=== PATIENT | male | born 1950 | race Caucasian/White ===

== ENCOUNTER 2023-02-04 13:30 | Outpatient (OUT) | payer MEDICARE, SELFPAY ==
--- NOTE | 2023-02-04 15:02 | PM.CN ---
Consult Note: HPI Data of Consult Patient: new to practice Consult date: 02/04/23 Requesting Physician: Elena Hightower MD Primary Care Provider: HUONG ARTHUR Consult Narrative Reason for consult: low back pain Narrative: this is a pleasant 72-year-old gentleman who presents for evaluation. He notes significant axial low back pain that is worsened with standing and ambulation. His lumbar imaging was reviewed, which is significant for multilevel facet arthropathy, worse at L3-L4 and L4-L5. Provided written home exercises, which did not provide relief of this pain. He takes primarily lflh-ygx-eixmxcy pain medicines, which did not provide much relief. He otherwise denies adverse medication side effects or loss of bowel or bladder control. cc:: CC: Elena Hightower MD Review of Systems ROS Status of ROS 10 or more systems reviewed and unremarkable except as noted in history and below Meds Home Medications and Allergies Home Medications Medication Instructions Recorded Confirmed Type amlodipine 10 mg tablet 10 mg PO DAILY 02/04/23 02/04/23 History lisinopril 40 mg tablet 40 mg PO DAILY 02/04/23 02/04/23 History trazodone 100 mg tablet 100 mg PO DAILY 02/04/23 02/04/23 History Allergies Allergy/AdvReac Type Severity Reaction Status Date / Time No Known Drug Allergies Allergy Verified 02/04/23 14:32 Exam Back & Pelvis Other: tender to palpation throughout the lumbar spine and paraspinal musculature. Pain is elicited with flexion, extension, and lateral rotation of the lumbar spine. Facet loading maneuvers are positive bilaterally. Coordination remains intact. Gait remains nonantalgic. Assessment and Plan Assessment and Plan (1) Lumbar spondylosis: Plan this is a pleasant 72-year-old gentleman who presents for evaluation. He has failed physical and medical modalities, as listed above. Imaging was reviewed, as noted above. Given his symptomatology and imaging findings, it is prudent to attempt diagnostic bilateral L3, L4, L5 medial branch blocks ?2 with the intention of proceeding to radio frequency ablation. He is in agreement with this plan. Medications were reviewed, and no changes were made at this time. He will follow up after the procedures completed.
== END 2023-02-04 13:31 | disposition home or self-care (01) ==
LOC: PM 13:31
PROVIDERS: PCP Internal Medicine; Visit Provider Anesthesiology
DX: M47.816 Spondylosis without myelopathy or radiculopathy, lumbar region (principal)
CPT/HCPCS: G0463

== ENCOUNTER 2023-02-25 06:46 | Day surgery (SDC) | payer MEDICARE, SELFPAY ==
[2023-02-25 07:22] VITALS: BP 151/99; PULSE 96; RESP 16; TEMP 36.6; O2SAT 96
[2023-02-25 08:19] VITALS: PULSE 74; RESP 18; O2SAT 97
[2023-02-25] MEDS: BUPIVACAINE HCL 0.25% PF 25 MG/10 ML VIAL INJ (08:19)
[2023-02-25] MEDS: TRIAMCINOLONE ACETONIDE 40 MG/ML VIAL INJ (08:20)
[2023-02-25] MEDS: LIDOCAINE HCL 2% PF 100 MG/5 ML VIAL INJ (08:20)
--- NOTE | 2023-02-25 08:20 | W.PM.PROCNOT ---
Date of procedure: 02/25/23 Pre-op diagnosis: lumbosacral spondylosis Post-op diagnosis: same Procedure: Procedure: Bilateral L4-5, L5-S1 medial branch block Medications: Bupivacaine 0.25% 5cc The patient was seen and examined in the preoperative holding area.? An informed consent was obtained and placed on the chart.? The patient was brought to the medical procedure unit and placed in the prone position.? A timeout was completed verifying correct patient, procedure site, positioning, plan, and special equipment.? Using aseptic technique, the needle was placed at left L4. Under direct fluoroscopic visualization a Quincke-tipped spinal needle was advanced to the junction of the superior articulating process with the transverse process at the designated medial branch segment.? Preceded by negative aspiration, the above-mentioned injectate was placed in 1 mL aliquots.? The procedure was repeated at left L5, S1.? The needle was removed and insertion site was covered. The same procedure, at the same levels, was completed on the right side. The patient was taken to the postprocedural recovery area and monitored for an appropriate length of time before found suitable for discharge in the company of a responsible adult. Anesthesia: None Surgeon: Elena Hightower Pathology: none sent Condition: stable
[2023-02-25 14:04] VITALS: BP 172/99; PULSE 63; RESP 18; O2SAT 99
== END 2023-02-25 08:25 | disposition home or self-care (01) ==
PROVIDERS: PCP Internal Medicine; Visit Provider Anesthesiology
DX: M47.817 Spondylosis without myelopathy or radiculopathy, lumbosacral region (principal)
CPT/HCPCS: 64493; 64494

== ENCOUNTER 2023-03-22 08:25 | Outpatient (OUT) | payer MEDICARE, SELFPAY ==
--- NOTE | 2023-03-22 08:42 | PM.CN ---
Consult Note: HPI Data of Consult Patient: known to practice within the last 3 years Consult date: 03/22/23 Requesting Physician: DANIELE MOTT NP Primary Care Provider: HUONG ARTHUR Consult Narrative Narrative: Patient is here for f/u of chronic . He had first MBB lumbar L3, 4, 5 done 02/25/23. He had 80% relief for several hours after procedure. He would like to proceed with second MBB. He states he feels like his pain is lower and would like to move down 1 level for second MBB. Pain today is lower lumbar axial with no radiculopathy, worse with ROM and walking . No new sensorimotor sx or bowel or bladder issues. Medication regimen assists patient to better complete ADLs. Denies adverse medication SE. OARRS reviewed. cc:: CC: DANIELE MOTT NP Review of Systems ROS Status of ROS 10 or more systems reviewed and unremarkable except as noted in history and below Musculoskeletal Reports: back pain PFSH PFSH Medical History Surgical History Meds Home Medications and Allergies Home Medications Medication Instructions Recorded Confirmed Type amlodipine 10 mg tablet 10 mg PO DAILY 02/04/23 02/25/23 History lisinopril 40 mg tablet 40 mg PO DAILY 02/04/23 02/25/23 History trazodone 100 mg tablet 100 mg PO DAILY 02/04/23 02/25/23 History Allergies Allergy/AdvReac Type Severity Reaction Status Date / Time No Known Drug Allergies Allergy Verified 02/04/23 14:32 Exam Constitutional Documenting provider has reviewed patient's vital signs: yes Common normals: no apparent distress, average body habitus, oriented x3, no limitations, healthy appearing, alert and well nourished General appearance: cooperative, comfortable and well developed Orientation/consciousness: Yes awake, Yes oriented to person, Yes oriented to place and Yes oriented to time HENMT Common normals: normocephalic and moist oral mucous membranes Respiratory Common normals: normal respiratory effort, no retractions and no use of accessory muscles Effort & inspection: able to speak in complete sentences and symmetric chest movement Back & Pelvis Lumbar spine/lower back: normal to inspection, ROM limited, pain with ROM, paraspinal muscle tenderness and paraspinal muscle spasm Other: positive facet load pain bilat lumbar Muscle strength 5/5 bilat LE with intact sensation Extremity Common normals: normal to inspection, full ROM, normal capillary refill and no pedal edema Assessment and Plan Assessment and Plan (1) Lumbar spondylosis: Plan schedule second dx MBB lumbar bilat L4, 5,S1 under fluoroscopy with ultimate progression to thermal RFA in future
== END 2023-03-22 08:26 | disposition home or self-care (01) ==
LOC: PM 08:25
PROVIDERS: PCP Internal Medicine; Visit Provider Nurse Practitioner
DX: M47.816 Spondylosis without myelopathy or radiculopathy, lumbar region (principal)
CPT/HCPCS: G0463

== ENCOUNTER 2023-04-22 09:40 | Day surgery (SDC) | payer MEDICARE, SELFPAY ==
[2023-04-22 10:39] VITALS: BP 163/103; PULSE 64; RESP 16; TEMP 36.2; O2SAT 97
[2023-04-22] MEDS: BUPIVACAINE HCL 0.25% PF 25 MG/10 ML VIAL INJ (11:26)
[2023-04-22] MEDS: TRIAMCINOLONE ACETONIDE 40 MG/ML VIAL INJ (11:26)
[2023-04-22] MEDS: LIDOCAINE HCL 2% PF 100 MG/5 ML VIAL INJ (11:26)
--- NOTE | 2023-04-22 11:30 | W.PM.PROCNOT ---
Date of procedure: 04/22/23 Pre-op diagnosis: lumbar spondylosis Post-op diagnosis: same as pre-op Procedure: Procedure: Bilateral L4-5, L5-S1 medial branch block Medications: Bupivacaine 0.25% 4cc The patient was seen and examined in the preoperative holding area.? An informed consent was obtained and placed on the chart.? The patient was brought to the medical procedure unit and placed in the prone position.? A timeout was completed verifying correct patient, procedure site, positioning, plan, and special equipment.? Using aseptic technique, the needle was placed at left L4. Under direct fluoroscopic visualization a Quincke-tipped spinal needle was advanced to the junction of the superior articulating process with the transverse process at the designated medial branch segment.? Preceded by negative aspiration, the above-mentioned injectate was placed in 1 mL aliquots.? The procedure was repeated at left L5, S1.? The needle was removed and insertion site was covered. The same procedure, at the same levels, was completed on the right side. The patient was taken to the postprocedural recovery area and monitored for an appropriate length of time before found suitable for discharge in the company of a responsible adult. Anesthesia: Local Surgeon: Elena Hightower Pathology: none sent Condition: stable Disposition: no change
[2023-04-23 11:17] VITALS: BP 159/95; BP 165/106; PULSE 62; RESP 18; O2SAT 96; O2SAT 98
== END 2023-04-22 11:34 | disposition home or self-care (01) ==
PROVIDERS: PCP Internal Medicine; Visit Provider Anesthesiology
DX: M47.816 Spondylosis without myelopathy or radiculopathy, lumbar region (principal)
CPT/HCPCS: 64493; 64494

== ENCOUNTER 2023-05-01 08:19 | Outpatient (OUT) | payer MEDICARE, SELFPAY ==
--- NOTE | 2023-05-01 08:31 | P.CN_ITS ---
Consult Note: HPI Data of Consult Patient: known to practice within the last 3 years Requesting Physician: Millie العراقي NP Primary Care Provider: HUONG ARTHUR Consult Narrative Reason for consult: f/u Narrative: Robert Grigsby a pleasant 73 year old male presents for evaluation and management of chronic low back pain. Patient has now underwent two MBB at bilateral L4-5 L5-S1 providing >80% pain relief and functional improvement. Today his pain is 3/10 and he is still benefitting from most recent procedure. Patient would like to discuss proceeding with thermal RFA at bilateral L4-5 L5-S1. cc:: CC: Millie العراقي NP Review of Systems ROS Status of ROS 10 or more systems reviewed and unremarkable except as noted in history and below Musculoskeletal Reports: back pain PFSH PFSH Medical History Surgical History Meds Home Medications and Allergies Home Medications Medication Instructions Recorded Confirmed Type amlodipine 10 mg tablet 10 mg PO DAILY 02/04/23 04/22/23 History lisinopril 40 mg tablet 40 mg PO DAILY 02/04/23 04/22/23 History trazodone 100 mg tablet 100 mg PO DAILY 02/04/23 04/22/23 History Allergies Allergy/AdvReac Type Severity Reaction Status Date / Time No Known Drug Allergies Allergy Verified 04/22/23 10:35 Exam Constitutional Documenting provider has reviewed patient's vital signs: yes Common normals: no apparent distress, oriented x3, healthy appearing, alert and well nourished General appearance: cooperative HENMT Common normals: normocephalic, hearing grossly normal bilaterally and moist oral mucous membranes Head and scalp: normocephalic Eye Common normals: PERRL Pupil: PERRL Neck & C-Spine Common normals: full ROM General: normal visual inspection Chest Common normals: inspection of chest normal Respiratory Common normals: normal respiratory effort, no retractions and no use of accessory muscles Back & Pelvis Lumbar spine/lower back: ROM limited and pain with ROM Other: bilateral facet loading positive predominately axial low back pain no radiculopathy Extremity Common normals: normal to inspection and full ROM Neuro Common normals: oriented x3, CN's II-XII intact bilaterally, moves all extremities, no focal motor deficits, no sensory deficits noted, deep tendon reflexes 2+ bilaterally and gait normal Sensorium/orientation: alert Motor exam: strength 5/5 throughout and no movement abnormalities noted Psych Common normals: mental status grossly normal, thought process normal, cooperative, affect normal, speech normal and activity/motor behavior normal Speech: normal speech Thought process: normal thought process Results Additional Findings Additional findings: I have checked an OARRS report on this patient today and there are no aberrancies noted in the prescribing history.?? A drug screen was completed and reviewed within the last year, and if there has not been a drug screen completed we ordered one today to monitor higher risk, state monitored pain medication use. As part of providing excellent, safe, comprehensive care, the following was completed at our patient's visit: 1. A medication reconciliation and review to ensure accurate knowledge of curren t/active medications, including asking our patients to inform us about any cqpq-uum-ssxmctw medications or herbal remedies/nutritional supplements/alternative remedies. 2. A review to specifically ensure our patients have had annual screening for: elevated body mass index (BMI), tobacco use, screening for depression, and screening for unhealthy alcohol use. When screening is concerning, patients are provided with education and the specific recommendation to discuss the concerning health issue and treatment options with their primary care provider. Assessment and Plan Assessment and Plan (1) Lumbar spondylosis: Assessment and Plan: We discussed the risks and benefits of the procedure with the patient, and we are NOT planning on using sedation as outlined in the guidelines from Medicare unless there is a documented reason that sedation would be strongly recommended.?? The procedure will be completed with fluoroscopic guidance.? (2) Chronic prescription opiate use: Assessment and Plan: has not had to utilize tramadol as pain has been well controlled since last MBB Plan patient has had >80% pain relief and functional improvement after bilateral L4-5 L5-S1 MBB #1 and #2, proceed with thermal RFA under fluoroscopy continue HEP follow up 1 month after
== END 2023-05-01 08:20 ==
LOC: PM 08:20
PROVIDERS: PCP Internal Medicine; Visit Provider Nurse Practitioner
DX: M47.816 Spondylosis without myelopathy or radiculopathy, lumbar region (principal); Z79.891 Long term (current) use of opiate analgesic
CPT/HCPCS: G0463

== ENCOUNTER 2023-05-20 08:18 | Day surgery (SDC) | payer MEDICARE, SELFPAY ==
[2023-05-20 08:41] VITALS: BP 159/99; PULSE 68; RESP 14; TEMP 36.3; O2SAT 95
[2023-05-20] MEDS: TRIAMCINOLONE ACETONIDE 40 MG/ML VIAL INJ (09:24)
[2023-05-20] MEDS: BUPIVACAINE HCL 0.25% PF 25 MG/10 ML VIAL INJ (09:24)
[2023-05-20] MEDS: LIDOCAINE HCL 2% 400 MG/20 ML MDV 15 ML INJ (09:24)
[2023-05-20 09:30] VITALS: BP 123/83; PULSE 76; RESP 18; O2SAT 97
[2023-05-20 09:34] VITALS: BP 125/81; PULSE 74; RESP 18; O2SAT 92
--- NOTE | 2023-05-20 09:37 | P.ON_ITS ---
Date of procedure: 05/20/23 Pre-op diagnosis: Lumbar spondylosis Post-op diagnosis: same as pre-op Procedure: Procedure: Bilateral L4-5, L5-S1 radiofrequency ablation Medications: Bupivacaine 0.25% 6cc, kenalog 80mg, lidocaine 2% 5cc The patient was seen and examined in the preoperative holding area.? The site was marked.? Written informed consent was obtained and placed on the chart.? The patient was brought to the medical procedure unit and placed in the prone position.? A timeout was completed verifying correct patient, procedure, positioning, and special requirements.? The skin overlying the target points, the designated medial branch, were prepped and draped in the usual sterile fashion.? The target point was achieved with a 20-gauge 15 cm with a 10 mm curved active tip radiofrequency cannula under direct fluoroscopic visualization.? The needle was inserted at level L4 on the right side. Needle tip position was confirmed with lateral fluoroscopic position.? Motor stimulation was carried out at 2 Hz up to 5 volts with the absence of extremity activity.? This was repeated at level L5, S1 on right side.?? Sensory stimulation was carried out.? Concordant pain was realized at the above- mentioned sites.? Then radiofrequency lesioning was carried out times 90 seconds at 80 degrees times 2 lesions at each level.? The radiofrequency probe was removed prior to cannula removal.? The above-mentioned injectate was placed in 1 mL increments.? The needle was removed. The same procedure, with the same steps, was then completed on the left side at the same levels. Insertion sites were covered.? The patient was taken to the postoperative recovery area and monitored for an appropriate length of time before being found suitable for discharge in the company of a responsible adult. Anesthesia: Local Surgeon: Elena Hightower Pathology: none sent Condition: stable Disposition: no change
== END 2023-05-20 09:42 | disposition home or self-care (01) ==
PROVIDERS: PCP Internal Medicine; Visit Provider Anesthesiology
DX: M47.816 Spondylosis without myelopathy or radiculopathy, lumbar region (principal)
CPT/HCPCS: 64635; 64636

== ENCOUNTER 2023-06-19 08:01 | Outpatient (OUT) | payer MEDICARE, SELFPAY ==
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
== END 2023-06-19 08:02 | disposition home or self-care (01) ==
PROVIDERS: PCP Internal Medicine; Visit Provider Nurse Practitioner
DX: M25.552 Pain in left hip (principal); M25.551 Pain in right hip; M47.26 Other spondylosis with radiculopathy, lumbar region; Z79.891 Long term (current) use of opiate analgesic
CPT/HCPCS: 73522; G0463

== ENCOUNTER 2023-06-19 08:50 | Outpatient (OUT) | payer MEDICARE, SELFPAY ==
--- NOTE | 2023-06-19 09:11 | XR_ITS ---
The [address] [address] Patient Name: INES MAK MRN: [id number] date: 1950 Sex: M Assigned Patient Location: [facility] Current Patient Location: [facility] Accession/Order Number: [id number] Exam Date: 06/19/2023 09:00 Report Date: 06/19/2023 12:14 At the request of: ANDRIUS GIEDRAITIS Procedure: XR hip KARRIE EXAMINATION: XR hip KARRIE HISTORY: Bilateral Hip Pain COMPARISON: No relevant comparison available. FINDINGS: RIGHT FINDINGS: BONES: No significant joint space narrowing, articular surface irregularity, or significant periarticular degenerative osteophytes. SOFT TISSUES: 6 mm round dense calcification versus foreign body projecting over upper right thigh and midline scrotum. OTHER: Negative. LEFT FINDINGS: BONES: No significant joint space narrowing, articular surface irregularity, or periarticular degenerative osteophytes. SOFT TISSUES: No visible soft tissue swelling. OTHER: Negative. XR/XR hip KARRIE IMPRESSION: RIGHT CONCLUSION: Minimal degenerative changes. No acute abnormality. LEFT CONCLUSION: Minimal degenerative changes. No acute abnormality. Electronically authenticated by: DOUGLAS BRAR Date: 06/19/2023 12:14
== END 2023-06-19 08:51 | disposition home or self-care (01) ==
LOC: RAD 08:52
PROVIDERS: PCP Internal Medicine; Visit Provider Anesthesiology
DX: M25.552 Pain in left hip (principal); M25.551 Pain in right hip
CPT/HCPCS: 73522

== ENCOUNTER 2023-07-15 07:32 | Day surgery (SDC) | payer MEDICARE, SELFPAY ==
[2023-07-15 08:22] VITALS: BP 180/105; PULSE 76; RESP 14; TEMP 36.5; O2SAT 96
[2023-07-15 09:20] VITALS: BP 221/126; PULSE 73; RESP 18; O2SAT 93
[2023-07-15] MEDS: 0.9 % SODIUM CHLORIDE 10 ML INJ (09:21)
[2023-07-15] MEDS: DEXAMETHASONE SOD PHOS 10 MG/ML VIAL INJ (09:22)
[2023-07-15] MEDS: BUPIVACAINE HCL 0.25% PF 25 MG/10 ML VIAL INJ (09:22)
--- NOTE | 2023-07-15 09:22 | W.PM.PROCNOT ---
Date of procedure: 07/15/23 Pre-op diagnosis: Lumbar stenosis with neurogenic claudication Post-op diagnosis: same as pre-op Procedure: Procedure: Bilateral L3-4 transforaminal epidural steroid injection Medications: Bupivacaine 0.25% 2cc, lidocaine 2% 1cc, dexamethasone 10mg The patient was seen and examined in the preoperative holding area.? Informed consent was obtained and placed on the chart.? Patient was brought to the medical procedure unit and placed in the prone position where a timeout was completed verifying the correct patient, procedure site, position, and planned special equipment using sterile aseptic technique.? Under direct fluoroscopic visualization a 25-gauge Quincke tipped spinal needle was advanced at level left L3-4 to the designated neural foramen where contrast dye was injected to show adequate spread.? There was no evidence of vascular or adverse uptake.? Epidural spread was appreciated.? The above-mentioned injectate was then placed in a 1.5 mL aliquot preceded by negative aspiration.? The needle was removed. The same procedure, at the same level, was completed on the opposite side. ? Patient was taken to the postprocedural recovery area and monitored for an appropriate length of time before found suitable for discharge in the accompaniment of a responsible adult. Anesthesia: Local Surgeon: Elena Hightower Pathology: none sent Condition: stable Disposition: no change
[2023-07-15 09:23] VITALS: BP 230/112; PULSE 68; RESP 18; O2SAT 92
[2023-07-15] MEDS: LIDOCAINE HCL 2% PF 100 MG/5 ML VIAL 2 ML INJ (09:24)
[2023-07-15] MEDS: IOHEXOL 240 MG/ML - 10 ML VIAL 12 MG INJ (09:24)
== END 2023-07-15 09:26 | disposition home or self-care (01) ==
PROVIDERS: PCP Internal Medicine; Visit Provider Anesthesiology
DX: M48.062 Spinal stenosis, lumbar region with neurogenic claudication (principal)
CPT/HCPCS: 64483; J1100; Q9966

== ENCOUNTER 2023-08-19 06:38 | Day surgery (SDC) | payer MEDICARE, SELFPAY ==
--- OUTSIDE RECORDS SUMMARY | 2023-08-19 06:40 | XMS_ITS | CCD ---
Author Name Unknown Address [address] [employer] [address] [place] [address] Organization [facility] Care Team Providers Care Will Call Order Clerk Name Role Phone Huong Arthur Primary Care Provider UnavailRichard Reilly Attending Provider Unavailable Villa Singleton Attending Provider Unavailable HUONG ARTHUR Primary Care Physician Unavail able DO Huong Arthur Primary Care Provider [phone] MD Jourdan Hammer Attending Provider DO Huong Arthur Primary Care Provider [phone] MD Jourdan Hammer Attending Provider TIMI Singleton Attending Provider Jourdan Hammer Admitting UnavailJourdan Watkins Attending UnavailHuong Guaman Primary Care Unavailable Villa Singleton Admitting Unavailable Villa Singleton Attending Unavailable Huong Arthur Primary Care Unavailable Mike AGUILAR Attending Unavailable Mike AGUILAR Attending Unavailable Mike AGUILAR Attending Unavailable Miek AGUILAR Attending Unavailable Mike AGUILAR Attending Unavailable HUONG ARTHUR Attending Unavailable HUONG ARTHUR Referring Unavailable Katja WHITT, Elena Schwartz Attending Unavailable Katja WHITT, Andrius Schwartz Attending Unavailable Katja WHITT, Andrius Efren Attending Unavailable Ktaja WHITT, Andrius Efren Attending Unavailable Katja WHITT, Andrius Schwartz Attending Unavailable Katja WHITT, Andrius Schwartz Attending Unavailable Unavailable Unavailable Unavailable Medications Current Medications Medication Drug Class(es) Dates Sig (Normalized) Sig (Original) amLODIPine 5 mg oral tablet (6 sources) Dihydropyridine Calcium Channel Ember Start: 12-22-2021 take 1 tablet by mouth once daily amLODIPine 5 mg Tab 5 mg = 1 tab(s), Oral, Daily, # 30 tab(s), Refills(s) 0, Pharmacy: [facility]/pharmacy #[id number], 177, cm, 12/07/21 12:34:00 EDT, Height/Length Dosing, 91.5, kg, 12/21/21 6:01:00 EDT, Weight Dosing Start Date: 12/22/21 Status: Ordered aspirin 81 mg oral tablet (5 sources) Platelet Aggregation Inhibitor, Nonsteroidal Anti-inflammatory Drug Start: 12-08-2020 take 81 mg by mouth once daily aspirin 81 mg, Oral, Daily, Prophylaxis Start Date: 12/08/20 Status: Ordered Start: 01-21-2019 take 81 mg by mouth once daily Aspirin Active 81 MG PO Daily January 21, 2019 12:00am cephalexin 500 mg oral capsule (1 source) Cephalosporin Antibacterial Start: 12-21-2021 End: 12-26-2021 take 1 capsule by mouth every twelve hours cephalexin 500 mg Cap 500 mg = 1 cap(s), Oral, q12hr, X 5 day(s), # 10 cap(s), Refills(s) 0, Pharmacy: [facility]/pharmacy #[id number], 177, cm, 12/07/21 12:34:00 EDT, Height/Length Dosing, 91.5, kg, 12/21/21 6:01:00 EDT, Weight Dosing Start Date: 12/21/21 Stop Date: 12/26/21 Status: Ordered DULoxetine 20 mg oral tablet (8 sources) Serotonin and Norepinephrine Reuptake Inhibitor Start: 08-30-2020 take 20 mg by mouth once daily duloxetine 20 mg, Oral, Daily, Refills(s) 0, Anxiety Start Date: 08/30/20 Status: Ordered Start: 01-21-2019 take 20 mg by mouth once daily Duloxetine Active 20 MG PO Daily January 21, 2019 12:00am fenofibrate 145 mg oral tablet (3 sources) Peroxisome Proliferator Receptor alpha Agonist Start: 01-21-2019 take 145 mg by mouth once daily Fenofibrate Nanocrystallized Active 145 MG PO Daily January 21, 2019 12:00am finasteride 5 mg oral tablet (11 sources) 5-alpha Reductase Inhibitor Start: 01-21-2019 take 5 mg by mouth once daily finasteride 5 mg, Oral, Daily, Refills(s) 0, Other (see comment) Start Date: 08/30/20 Status: Ordered gabapentin 800 mg oral tablet (8 sources) Anti-epileptic Agent Start: 12-07-2021 take 1 tablet by mouth twice daily gabapentin 800 mg Tab 800 mg = 1 tab(s), Oral, BID, Refills(s) 0, Pain Start Date: 12/07/21 Status: Ordered hyoscyamine sulfate 0.12 mg / methenamine 118 mg / methylene blue 10 mg / phenyl salicylate 36 mg / sodium phosphate, monobasic 40.8 mg oral capsule (2 sources) Oxidation-Reductio n Agent Start: 01-17-2022 take 1 capsule by mouth twice daily Uribel oral capsule 1 cap(s), Oral, BID, 40 cap(s), Refill(s) 3, [id number], 177, cm, 01/01/22 10:55:00 EDT, Height/Length Dosing, 84.2, kg, 01/01/22 10:55:00 EDT, Weight Dosing Start Date: 01/17/22 Status: Ordered lisinopril 40 mg oral tablet (14 sources) Angiotensin Converting Enzyme Inhibitor Start: 12-22-2021 End: 12-22-2021 lisinopril 20 mg Tab 40 mg = 2 tab(s), Tab, Oral, Start date 12/22/21 9:00:00 EDT, 12/20/21 11:35:00 EDT Start Date: 12/22/21 Stop Date: 12/22/21 Status: Completed Start: 11-04-2020 take 1 tablet by alicia th once daily in the morning lisinopril 40 mg Tab 40 mg = 1 tab(s), Oral, Daily, TAKE 1 TABLET BY MOUTH IN THE MORNING FOR 90 DAYS, High blood pressure Start Date: 11/04/20 Status: Ordered Start: 01-21-2019 End: 09-04-2022 take 5 mg by mouth once daily Lisinopril Discontinued 5 MG PO Daily January 21, 2019 12:00am September 04, 2022 8:26am meclizine hydrochloride 25 mg oral tablet (8 sources) Antiemetic Start: 08-30-2020 take 25 mg by mouth three times daily as needed for dizziness meclizine 25 mg, Oral, TID, PRN as needed for dizziness, Refills(s) 0 Start Date: 08/30/20 Status: Ordered mesalamine 1200 mg delayed release oral tablet (5 sources) Aminosalicylate Start: 09-04-2022 take 2 tablets by mouth once daily Mesalamine (Lialda) 1.2 gram tablet,delayed release (DR/EC) Active 2.4 GM PO Daily 112 September 04, 2022 1:00am Start: 02-16-2019 take 1.5 g by mouth once daily in the morning Mesalamine Active 1.5 GM Oral Every morning 120 February 16, 2019 10:35am Start: 02-16-2019 take 1 capsule by mo [facility] once daily in the morning Mesalamine (Apriso) 0.375 gram capsule,extended release 24hr Active 1.5 GM PO Every morning 120 February 16, 2019 12:00am Start: 02-16-2019 take 1 capsule by mo [facility] once daily in the morning Mesalamine (Apriso) 0.375 gram capsule,extended release 24hr Active 1.5 GM PO Every morning 120 February 15, 2019 11:00pm [place]-3 Fatty Acids (2 sources) Start: 01-21-2019 take 2000 mg by mout h once daily in the morning [place]-3 Fatty Acids Active 2000 MG Oral Every morning January 21, 2019 1:21pm Start: 01-21-2019 take 1500 mg by mouth at bedti az [place]-3 Fatty Acids Active 1500 MG Oral Bedtime January 21, 2019 1:21pm pregabalin 100 mg oral capsule (3 sources) Start: 01-21-2019 take 200 mg by mouth once daily Pregabalin Active 200 MG Oral Daily January 21, 2019 1:21pm Start: 01-21-2019 take 200 mg by mouth once annette y Pregabalin Active 200 MG PO Daily January 21, 2019 12:00am rosuvastatin 40 mg oral capsule (11 sources) HMG-CoA Reductase Inhibitor Start: 08-30-2020 take 40 mg by mouth once daily at bedtime rosuvastatin 40 mg, Oral, Once a day (at bedtime), Refills(s) 0, High cholesterol Start Date: 08/30/20 Status: Ordered Start: 01-21-2019 take 20 mg by mouth once daily Rosuvastatin Active 20 MG PO Daily January 21, 2019 12:00am solifenacin succinate 10 mg oral tablet (1 source) Cholinergic Muscarinic Antagonist Start: 06-12-2023 take 1 tablet by mouth once daily Vesicare 10 mg Tab 10 mg = 1 tab(s), Oral, Daily, # 30 tab(s), Refills(s) 11, Pharmacy: [facility]/pharmacy #[id number], 177, cm, 06/12/23 11:07:00 EDT, Height/Length Dosing, 84.2, kg, 06/12/23 11:07:00 EDT, Weight Dosing Start Date: 06/12/23 Status: Ordered tamsulosin (3 sources) alpha-Adrenergic Ember Start: 01-21-2019 take 0.8 mg by mouth once daily Tamsulosin Active 0.8 MG Oral Daily January 21, 2019 1:21pm Start: 01-21-2019 End: 09-04-2022 take 2 capsules by mouth once daily Tamsulosin (Flomax) 0.4 mg Capsule Discontinued 0.8 MG PO Daily January 21, 2019 12:00am September 04, 2022 8:27am temazepam 15 mg oral capsule (8 sources) Benzodiazepine Start: 12-07-2021 take 1 capsule by mouth once daily at bedtime temazepam 15 mg Cap 15 mg = 1 cap(s), Oral, Once a day (at bedtime), Refills(s) 0, Insomnia Start Date: 12/07/21 Status: Ordered traZODone hydrochloride 50 mg oral tablet (2 sources) Serotonin Reuptake Inhibitor Start: 09-04-2022 take 50-100 mg by mouth once daily at bedtime Trazodone Active 50 - 100 MG PO Daily at bedtime September 04, 2022 1:00am trospium chloride 20 mg oral tablet (9 sources) Cholinergic Muscarinic Antagonist Start: 09-28-2021 End: 09-23-2022 take 1 tablet by mouth twice daily trospium 20 mg oral tablet 20 mg = 1 tab(s), Oral, BID, X 30 day(s), # 60 tab(s), Refills(s) 11, Pharmacy: [facility]/pharmacy #[id number], 177, cm, 09/28/21 10:05:00 EST, Height/Length Dosing, 89, kg, 09/28/21 10:05:00 EST, Weight Dosing Start Date: 09/28/21 Stop Date: 09/23/22 Status: Ordered Start: 01-21-2019 take 40 mg by mouth once daily Trospium Active 40 MG PO Daily January 21, 2019 12:00am Completed/Discontinued Medications Medication Drug Class(es) Dates Sig (Normalized) Sig (Original) amoxicillin 875 mg / clavulanate 125 mg oral tablet (2 sources) Penicillin-class Antibacterial Start: 01-21-2019 End: 02-16-2019 take 1 tablet by mouth three times daily Amoxicillin-Pot Clavulanate Discontinued 1 TAB PO Three times daily January 21, 2019 12:00am February 16, 2019 8:01am [place]-3 Fatty Acids (Fish Oil Concentrate) 1,000 mg Capsule (4 sources) Start: 01-21-2019 End: 09-04-2022 [place]-3 Fatty Acids (Fish Oil Concentrate) 1,000 mg Capsule Discontinued 2000 MG PO Every morning January 21, 2019 12:00am September 04, 2022 8:26am Start: 01-21-2019 End: 09-04-2022 [place]-3 Fatty Acids (Fish Oi l Concentrate) 1,000 mg Capsule Discontinued 1500 MG PO Bedtime January 21, 2019 12:00am September 04, 2022 8:26am Start: 01-21-2019 End: 09-04-2022 [place]-3 Fatty Acids (Fish Oi l Concentrate) 1,000 mg Capsule Discontinued 2000 MG PO Every morning January 20, 2019 11:00pm September 04, 2022 7:26am Start: 01-21-2019 End: 09-04-2022 [place]-3 Fatty Acids (Fish Oi l Concentrate) 1,000 mg Capsule Discontinued 1500 MG PO Bedtime January 20, 2019 11:00pm September 04, 2022 7:26am predniSONE 10 mg oral tablet (2 sources) Start: 01-21-2019 End: 03-11-2019 take 10 mg by mouth once daily Prednisone Discontinued 10 MG PO Daily January 21, 2019 12:00am March 11, 2019 7:40am tapering dose Problems Active Problems Problem Classification Problem Date Documented Date Episodic/Chronic Abdominal pain (6 sources) Left lower quadrant pain; Translations: [Abdominal pain] 02-16-2019 Episodic Cancer of kidney and renal pelvis (8 sources) Malignant tumor of kidney 07-03-2015 Chronic Chronic obstructive pulmonary disease and bronchiectasis (1 source) Bronchitis; Translations: [Bronchitis, not specified as acute or chronic] Onset: 12-21-2021 Episodic Disorders of lipid metabolism (9 sources) Hypercholesterolemia; Translations: [Pure hypercholesterolemia] Onset: 12-21-2021 01-28-2014 Chronic Essential hypertension (8 sources) Hypertensive disorder 01-28-2014 Chronic Fluid and electrolyte disorders (1 source) Hypo-osmolality and or hyponatremia; Translations: [Hypo-osmolality and hyponatremia] Onset: 12-22-2021 Episodic Genitourinary symptoms and ill-defined conditions (15 sources) Urge incontinence; Translations: [Stress incontinence (female) (male)] Onset: 01-01-2022 Chronic Genitourinary symptoms and ill-defined conditions (20 sources) Candido hematuria; Translations: [Retention of urine] Onset: 12-21-2021 12-07-2021 Episodic Hyperplasia of prostate (19 sources) Benign prostatic hypertrophy with outflow obstruction; Translations: [Large prostate ] Onset: 01-01-2022 12-26-2020 Chronic Hypertension with complications and secondary hypertension (1 source) Hypertensive urgency ; Translations: [Hypertensive urgency] Onset: 12-21-2021 Chronic Inflammatory conditions of male genital organs (8 sources) Chronic prostatitis 12-26-2020 Chronic Mood disorders (1 source) Depressive disorder; Translations: [Depression, unspecified] Onset: 12-21-2021 Chronic Nausea and vomiting (1 source) Nausea; Translations: [Nausea] Onset: 12-21-2021 Episodic Noninfectious gastroenteritis (3 sources) Colitis; Translations: [Noninfective gastroenteritis and colitis, unspecified] 01-21-2019 Episodic Other and unspecified benign neoplasm (2 sources) History of polyp of colon; Translations: [Personal history of colonic polyps] 07-05-2020 Episodic Other diseases of bladder and urethra (1 source) Detrusor overactivity; Translations: [Overactive bladder] Onset: 06-12-2023 Chronic Other diseases of bladder and urethra (1 source) Overactive bladder 06-12-2023 Chronic Other nervous system disorders (1 source) Chronic pain; Translations: [Other chronic pain] Onset: 12-21-2021 Chronic Other nutritional; endocrine; and metabolic disorders (8 sources) Body mass index 25-29 - overweight 01-20-2021 Episodic Other nutritional; endocrine; and metabolic disorders (1 source) Overweight in adulthood with body mass index of 25 or more but less than 30; Translations: [Body mass index (BMI) 27.0-27.9, adult] Onset: 01-01-2022 Episodic Other screening for suspected conditions (not mental disorders or infectious disease) (8 sources) Raised prostate specific antigen 12-26-2020 Episodic Residual codes; unclassified (1 source) Procedure carried out on subject; Translations: [Encounter for prophylactic measures, unspecified] Onset: 12-21-2021 Episodic Residual codes; unclassified (1 source) Insomnia; Translations: [Insomnia, unspecified] Onset: 12-21-2021 Episodic Spondylosis; intervertebral disc disorders; other back problems (6 sources) Low back pain; Translations: [Backache] 03-11-2019 Episodic Substance-related disorders (9 sources) Smoker; Translations: [Nicotine dependence] Onset: 02-14-2022 01-02-2019 Chronic Comment on above: Added secondary to d ocumentation in Social History. Unclassified (8 sources) Asymptomatic microscopic hematuria 01-20-2021 Unclassified (8 sources) Finding of sensation of bladder 10-11-2021 Unclassified (1 source) Encounter for screening for malignant neoplasm of respiratory organs; Translations: [Encounter for screening for malignant neoplasm of respiratory organs] Onset: 11-15-2022 Past or Other Problems Problem Classification Problem Date Documented Da te Episodic/Chronic Other and unspecified benign neoplasm (3 sources) Personal history of colonic polyps; Translations: [Personal history of colonic polyps] Onset: 09-04-2022 09-04-2022 Episodic Other gastrointestinal disorders (1 source) Other specified symptoms and signs involving the digestive system and abdomen; Translations: [Other specified symptoms and signs involving the digestive system and abdomen] Onset: 09-04-2022 Episodic Results Test Name Value Interpretation Reference Range Facility Screenson 06-13-2023 Screens [id number] Normal [facility] Ambulatory Visit Summaryon 1 08-12-2022 Ambulatory Visit Summary ROBERT GRIGSBY :1950 Visit Date:06/12/2023 Ambulatory Visit Instructions Your Diagnosis BPH with obstruction/lower urinary tract symptoms Feeling of incomplete bladder emptying OAB (overactive bladder) Mixed incontinence Asymptomatic microscopic hematuria Tests Performed Urnls Dip Stick Auto w/o Microscopy POC [id number] Your Care Team Attending Physician - Mike AGUILAR MD Primary Care Physician - HUONG ARTHUR DO This Is Your Medications List hyoscyamine/methena /mblue/phenylsal/so dbiphos (Uribel oral capsule) Contact prescribing physician if questions or concerns amlodipine (amLODIPine 5 mg Tab) finasteride gabapentin (gabapentin 800 mg Tab) lisinopril (lisinopril 40 mg Tab) meclizine rosuvastatin temazepam (temazepam 15 mg Cap) Procedures Performed TURP - Transurethral resection of prostate (12/20/2021), Transurethral water vapor ablation of prostate (01/02/2021), Biopsy of prostate (12/08/2020), Intercostal nerve block (09/20/2020), 1/2 left kidney removed (10/10/2014), [place] (03/19/2012), Colonoscopy. Discharge Vitals Height 177 cm Height 70 in Weight 84.2 kg Weight 185.24 lb BMI 26.88 What to do next Scheduled Follow-Up Appointments Saturday 8:45 AM EST With: Mike AGUILAR MD Where: [facility] Patient Educationon 06-12-20 23 Patient Education Obstetrics and Gynecology Overactive Bladder, Adult Overactive bladder is a condition in which a person has a sudden and frequent need to urinate. A person might also leak urine if he or she cannot get to the bathroom fast enough (urinary incontinence). Sometimes, symptoms can interfere with work or social activities. What are the causes? Overactive bladder is associated with poor nerve signals between your bladder and your brain. Your bladder may get the signal to empty before it is full. You may also have very sensitive muscles that make your bladder squeeze too soon. This condition may also be caused by other factors, such as: ? Medical conditions: ? Urinary tract infection. ? Infection of nearby tissues. ? Prostate enlargement. ? Bladder stones, inflammation, or tumors. ? Diabetes. ? Muscle or nerve weakness, especially from these conditions: ? A spinal cord injury. ? Stroke. ? Multiple sclerosis. ? Parkinson's disease. ? Other causes: ? Surgery on the uterus or urethra. ? Drinking too much caffeine or alcohol. ? Certain medicines, especially those that eliminate extra fluid in the body (diuretics). ? Constipation. What increases the risk? You may be at greater risk for overactive bladder if you: ? Are an older adult. ? Smoke. ? Are going through menopause. ? Have prostate problems. ? Have a neurological disease, such as stroke, dementia, Parkinson's disease, or multiple sclerosis (MS). ? Eat or drink alcohol, spicy food, caffeine, and other things that irritate the bladder. ? Are overweight or obese. What are the signs or symptoms? Symptoms of this condition include a sudden, strong urge to urinate. Other symptoms include: ? Leaking urine. ? Urinating 8 or more times a day. ? Waking up to urinate 2 or more times overnight. How is this diagnosed? This condition may be diagnosed based on: ? Your symptoms and medical history. ? A physical exam. ? Blood or urine tests to check for possible causes, such as infection. You may also need to see a health care provider who specializes in urinary tract problems. This is called a urologist. How is this treated? Treatment for overactive bladder depends on the cause of your condition and whether it is mild or severe. Treatment may include: ? Bladder training, such as: ? Learning to control the urge to urinate by following a schedule to urinate at regular intervals. ? Doing Kegel exercises to strengthen the pelvic floor muscles that support your bladder. ? Special devices, such as: ? Biofeedback. This uses sensors to help you become aware of your body's signals. ? Electrical stimulation. This uses electrodes placed inside the body (implanted) or outside the body. These electrodes send gentle pulses of electricity to strengthen the nerves or muscles that control the bladder. ? Women may use a plastic device, called a pessary, that fits into the vagina and supports the bladder. ? Medicines, such as: ? Antibiotics to treat bladder infection. ? Antispasmodics to stop the bladder from releasing urine at the wrong time. ? Tricyclic antidepressants to relax bladder muscles. ? Injections of botulinum toxin type A directly into the bladder tissue to relax bladder muscles. ? Surgery, such as: ? A device may be implanted to help manage the nerve signals that control urination. ? An electrode may be implanted to stimulate electrical signals in the bladder. ? A procedure may be done to change the shape of the bladder. This is done only in very severe cases. Follow these instructions at home: Eating and drinking ? Make diet or lifestyle changes recommended by your health care provider. These may include: ? Drinking fluids throughout the day and not only with meals. ? Cutting down on caffeine or alcohol. ? Eating a healthy and balanced diet to prevent constipation. This may include: ? Choosing foods that are high in fiber, such as beans, whole grains, and fresh fruits and vegetables. ? Limiting foods that are high in fat and processed sugars, such as fried and sweet foods. Lifestyle ? Lose weight if needed. ? Do not use any products that contain nicotine or tobacco. These include cigarettes, chewing tobacco, and vaping devices, such as e-cigarettes. If you need help quitting, ask your health care provider. General instructions ? Take bjzi-fes-bkdaiar and prescription medicines only as told by your health care provider. ? If you were prescribed an antibiotic medicine, take it as told by your health care provider. Do not stop taking the antibiotic even if you start to feel better. ? Use any implants or pessary as told by your health care provider. ? If needed, wear pads to absorb urine leakage. ? Keep a log to track how much and when you drink, and when you need to urinate. This will help your health care provider monitor yo (more content not included)... [facility] Urology Office/Clinic Noteon 06-12-2023 Urology Office/Clinic Note HPI Staff 73 year old male here for 6 month follow up Previous Dx: bph with luts S/P TURP 12/20/21 and Rezum 12/2020- continues Trospium 20mg BID. Feeling of incomplete bladder emptying, Nocturia, micro hematuria, mixed incontinence, Dysuria-continues Uribel BID Pt. not taking. Dysuria: no Incomplete bladder emptying: yes Hematuria: no Frequency: 2 hours Urgency: no Nocturia: 4x's Stream: good stream Post void dripping: yes Wearing pads/ Depends: Pt. states does not have to wear any thing now but is thinking about wearing protection Urge incontinence: no Stress incontinence: no Incontinence without Sensory Awareness: no Abdominal pain: no Flank pain: lower History of Present Illness Tests reviewed: Reviewed UA I have reviewed the previous health record information and history for this patient from Dr. Aguilar. I have reviewed and verified the staff HPI to be accurate for this encounter. There have been no associated fever, chills, flank pain, or blood in the urine. Denies any urinary infections since last encounter. Review of Systems PHQ Score Initial Depression Screen Score: 0 ROS - Provider Constitutional: denies weight loss, denies hot flashes. Eyes: denies eye problems. Gastrointestinal: denies nausea, denies vomiting. Cardiovascular: denies chest pain or angina. Integumentary: no dryness Musculoskeletal: denies musculoskeletal symptoms. ENMT: denies otolaryngeal symptoms. Respiratory: no shortness of breath. Heme/Lymph: denies easy bleeding tendency, denies easy bruising tendency. Psychiatric: no confusion, no anxiety. Genitourinary: See HPI. Physical Exam Vitals & Measurements HT: 70 in HT: 177 cm WT: 84.2 kg WT: 185.24 lb BMI: 26.88 General Appearance: alert, no distress, well nourished, well developed male. Genitourinary: normal scrotum, normal testes, normal urethra, normal epididymis, normal vas deferens/spermatic cord. Flank Pain: none. Bladder: nonpalpable. Assessment/Plan Discussed PSA checks, pt to discuss with PCP Portions of this record may have been created with voice recognition artificial intelligence software, specifically [employer], [employer] and or [employer]. Substitutions may have occurred due to the inherent limitations of voice recognition and artificial intelligence software. 1. BPH with obstruction/lower urinary tract symptoms (N40.1: Benign prostatic hyperplasia with lower urinary tract symptoms) S/p TURP 12/20/21 S/p REZUM 12/2020 IPSS 22. Frequency, mainly during the night - 4x. Pt states since he has had two procedures done he does not wish to try any medications however he does admit that sx have improved. UA unremarkable. 2. Feeling of incomplete bladder emptying (R39.14: Feeling of incomplete bladder emptying) Ongoing feeling of not emptying. PVR: 01/01/22 - 132 cc 02/14/22 - 20 cc 06/12/23 - 85 cc 3. OAB (overactive bladder) (N32.81: Overactive bladder) No longer taking Trospium 20mg BID. Main complaint is urgency. See #1. Discussed starting a new medication. Pt agrees. -Will start VESIcare 10mg qd, discussed SEs -Follow up within 3 months 4. Mixed incontinence (N39.46: Mixed incontinence) States he is getting embarrassed due to leakage. See #3 5. Asymptomatic microscopic hematuria (R31.21: Asymptomatic microscopic hematuria) UA today neg for blood. Denies gross hematuria. -Call if he has blood in urine The patient did not follow-up after his last visit in February 2022. He feels he is overall better after the prostate resection. He still has urgency and frequency and nocturia. He is confirmed to have fairly minimal residual urine volume. Due to the overactive bladder symptomatology we will send prescription for Vesicare at 10 mg daily. He knows to monitor for worsening ability to empty his bladder while at the same time hoping for an improvement in urgency and frequency and nocturia. He agrees with the plan. 3-month follow-up. He can call with a clinical update. He will be having a conversation with his PCP about PSA levels with his yearly blood work. Follow-up With When Contact Information LAUREN WHITT, Mike Hughes, URL [address] [address]- Additional Instructions: 3 mos to starting new med Patient Education Overactive Bladder, Adult ISofie, personally scribed for Dr. Aguilar on 06/12/2023 11:45:12. . Documentation recorded by the scribSofie sellers, accurately reflects the services(s) I performed and decisions made by me. Authenticated by Dr. Aguilar on 06/12/2023 11:59:01. Problem List/Past Medical History Ongoing Asymptomatic microscopic hematuria BMI 27.0-27.9,adult BPH with obstruction/lower urinary tract symptoms Chronic prostatitis Dysuria Elevated PSA Enlarged prostate Feeling of incomplete bladder emptying HTN [Hypertension] Hypercholesterolemi a (more content not included)... Normal [facility] Comment on above: Result Comment: Elec tronically Signed By: Mike AGUILAR MD\.br\Date and Time Signed: 06/12/23 12:00 EDT\.br\Electronically Co-Signed By: Sofie Rosenberg.br\Date and Time Co-Signed: 06/12/23 11:[address] Abdomen/Pelvis w/ Contras ton 12-19-2022 CT Abdomen/Pelvis w/ Contrast CLINICAL HISTORY: Left mid quadrant tenderness. History diverticulosis and left renal cancer. History TURP. COMPARISON: None available. TECHNIQUE: Multiple contiguous axial images were obtained of the abdomen and pelvis following intravenous administration of 100 mL Isovue 300. Multiplanar reformatted images were acquired at the CT console. Oral contrast was also given. FINDINGS: Lung bases are clear. No pleural effusion. There is decreased attenuation of the liver parenchyma, consistent with liver steatosis.l in the abdomen the liver there is a 9 mm hypodense lesion in the left lobe and a 5 mm hypodense lesion in the right lobe of the liver. The larger lesion is water density and the other is too small to characterize, probably secondary to small liver cysts. The liver and spleen are not enlarged. Gallbladder is partially distended and unremarkable. Pancreas and adrenal glands have normal morphology. Kidneys line in normal position with symmetrical excretion of contrast. There is a 3.8 cm cyst within the left kidney, measuring -5 HU. There is a 1.4 cm cyst within the anterior mid right kidney, measuring 12 HU. There is a smaller cyst in the upper portion of the left kidney. The upper pole of left kidney has been resected with metallic clips in the left renal hilum. No hydronephrosis. Ureters are not dilated. No evidence of solid renal mass. No evidence of renal calculus. Portions of ureters visualized are unremarkable. Prostate gland is enlarged with a TURP defect. The duodenum and small bowel are not dilated. Appendix is normal. There are diverticula within the descending colon and sigmoid colon. No stranding changes in the mesentary to indicate acute diverticulitis. No sign of free fluid nor free air. Mild dilatation of abdominal aorta with maximum diameter 3.6 cm. Atherosclerotic calcifications in the aorta and iliac arteries. No retroperitoneal or pelvic or mesenteric adenopathy. No ascites. There is an irregular sclerotic focus in the right acetabulum superiorly, indeterminate. Vertebral heights are maintained. The T8 vertebral body has vertical striations and lucencies, suspect hemangioma. Narrowed L2-3 disc with protruding disc and canal stenosis at this level. Also narrowed disc at the L3-4 level with some canal stenosis. Hypertrophy of lower facet joints. IMPRESSION: NO ACUTE INTRA-ABDOMINAL OR PELVIC PROCESS. LIVER STEATOSIS. SUSPECTED LIVER CYSTS. DIVERTICULOSIS INVOLVING DISTAL COLON WITHOUT DEFINITE ACUTE DIVERTICULITIS. 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 NO ADENOPATHY OR ASCITES. STATUS POST RESECTION UPPER POLE LEFT KIDNEY. RENALCYSTS. SCLEROTIC LESION RIGHT ACETABULUM, INDETERMINATE. Report reported and signed by Supriya Nassar on 12/20/2022 0845 Normal [facility] CT lung screeningon 11-16-19 CT lung screening [facility] Main [place] [address] [place] [address] CT Scan Report Signed Patient: Robert Grigsby MR#: [id number] 3 : 1950 Acct:[id number] Age/Sex: 72 / M ADM Date: 11/15/22 Loc: [facility] Room: Type: [facility] Attending Dr: Villa Singleton RN, MSN, ANP-C Copies to: DO RICARDO Corona MICHELE L RN, MSN Ordering Provider: Huong Arthur DO Date of Service: 11/15/22 CT/CT lung screening: smoker;Smoker CT CHEST WITHOUT CONTRAST, LOW DOSE SCREENING: CLINICAL DATA: A 72-year old current smoker, smoking for 30 pack-years. COMPARISON: Lung screening CT 11/09/2021 TECHNIQUE: Noncontrast axial CT scan images of the chest were obtained under the low dose screening CT protocol. Coronal and sagittal reconstructed images were also submitted. FINDINGS: Mediastinum : Suboptimal evaluation due to low-dose technique. Thoracic aorta appears normal in caliber. Pulmonary trunk appears nondilated. No pericardial effusion. No lymphadenopathy. The esophagus is grossly unremarkable. Lungs: No focal consolidation, pneumothorax or pleural effusion. Trachea and distal airways appear patent. Diffuse bronchial wall thickening. Mild lung scarring. Previously identified 5 mm nodule along the right lower lobe still appears to be present and unchanged series 2 image 114. Stable 6 mm noncalcified pulmonary nodule right lower lobe series 2 image 131. Stable 3 mm noncalcified pulmonary nodule right middle lobe series 2 image 137. Stable 3 mm noncalcified pulmonary nodule left lower lobe series 2 image 160. No new or enlarging suspicious pulmonary nodules are seen. Calcified granuloma right upper lobe. Upper abdomen: No acute findings. Bony thorax and chest wall: Soft tissues surrounding the chest wall demonstrate no acute findings. Osseous structures demonstrate degenerative change. CT/CT lung screening IMPRESSION: NO NEW OR ENLARGING SUSPICIOUS PULMONARY NODULES. LUNG - RADS Version 1.0 Assessment: Category 2, Benign appearance or behavior. Management: Continue annual lung screening with LDCT in 12 months. Impression dictated by: Norman Moody Jr., Feliciano11/15/2022 12:27 PM Dictation Location: [place] [address] Transcribed By: [facility] 11/15/22 1227 Dictated By: Norman Moody Jr, DO 11/15/22 1208 Signed By: 11/15/22 1227 [facility] 09-04-2022 L Specimen: [id number] Received: 09/04/22 Status: MAIK Huang Num: [id number] Spec Type: Surgical Subm Dr: Jourdan Hammer MD Tissues: A Colon Biopsy (SIGMOID POLYP) B Colon Biopsy (RECTAL POLYPS X4) Procedures: HE/4, Gross/Micro L4/2 Age/ Patient Sex Location Account Attending Physician Robert Grigsby 72/[facility] [id number] Jourdan Hammer MD SPEC NUM: [id number] RECD: 09/04/22 STATUS: MAIK HUANG NUM: [id number] KOLBY: 09/04/[address] [facility] [address]: Jourdan Hammer MD ENTERED: 09/04/22 [facility] DR: CORNELIA TYPE: Surgical DEPT: S ORDERED: HE/4, Gross/Micro L4/2 ORDERED: HE/4, Gross/Micro L4/2 -The Amended Report was created by mistake. -Please disregard this amended report -No any change of initial diagnosis Addendum Signed (signature on file) Julianna Felix MD 06/24/23 1400 Supplemental Report Addendum 1 Entered: 06/24/23-7463 -The supplemental is also recreated by mistake -Please disregard this supplemental report Addendum Signed (signature on file) Julianna Felix MD 06/24/23 1406 Specimen: [id number] Received: 09/04/22 Status: MAIK Huang Num: [id number] Spec Type: Surgical Subm Dr: Jourdan Hammer MD Tissues: A Colon Biopsy (SIGMOID POLYP) B Colon Biopsy (RECTAL POLYPS X4) Procedures: Christiano KRAMER/Christina L4/2 Patient: Robert Grigsby [id number] (Continued) Specimen: [id number] Received: 09/04/22 (Continued) Signed (signatur e on file) Jase Peña MD 09/05/22 1706 Specimen: [id number] Received: 09/04/22 Status: MAIK Huang Num: [id number] Spec Type: Surgical Subm Dr: Jourdan Hammer MD Tissues: A Colon Biopsy (SIGMOID POLYP) B Colon Biopsy (RECTAL POLYPS X4) Procedures: HE/Tequila, Gross/Micro L4/2 Patient: Robert Grigsby [id number] (Continued) Specimen: [id number] Received: 09/04/22 (Continued) Pathological Diagnosis A. Colon, sigmoid, polypectomy: - Tubular adenoma of colon, no high grade dysplasia seen. B. Colon, rectum, polypectomy: - Hyperplastic polyps of colon. Clinical Information History polyps Gross Description A. Received in formalin labeled with the patient's name, number and sigmoid polyp are multiple fragments of soft gray tissue and fecal material measuring 2.0 x 1.5 x 0.2 cm in aggregate. Entirely submitted in one cassette labeled A1. B. Received in formalin labeled with the patient's name, number and multiple rectal polyps ?4 are four fragments of soft gray tissue ranging from 0.4 cm to 0.9 cm. Entirely submitted in one cassette labeled B1. Microscopic Description A. Two glass slides with H E stained material have been examined. B. Two glass slides with H E stained material have been examined. The microscopic findings support the above pathologic diagnosis. CPT Codes 20477?2 Specimen: [id number] Received: 09/04/22 Status: MAIK Sal Num: [id number] Spec Type: Surgical Subm Dr: Jourdan Hammer MD Tissues: A Colon Biopsy (SIGMOID POLYP) B Colon Biopsy (RECTAL POLYPS X4) Procedures: HE/Tequila, Gross/Micro L4/2 Patient: Robert Grigsby [id number] (Continued) Signed (signatur e on file) Jase Peña MD 09/05/22 1706 [facility] CHEMISTRYOrdered By: SYSTEM SYSTEM on 12-22-2021 Anion gap [Moles/Vol] 12 mmol/L Normal 6 - 16 mEq/L F [facility] Remisol Calcium [Mass/Vol] 8.5 mg/dL Low 8.9 - 11. 1 mg/dL [facility] Remisol Chloride [Moles/Vol] 102 mmol/L Normal 101 - 1 11 mmol/L [facility] CO2 [Moles/Vol] 24 mmol/L Normal 21 - 31 mmol/L [facility] Creatinine [Mass/Vol] 1.0 mg/dL Normal 0.5 - 1.3 mg/dL [facility] Remisol GFR/1.73 sq M.predicted among blacks MDRD (S/P/Bld) [Vol rate/Area] mL/min/1.73 m2 Normal >=59mL/min/1. 73 m2 FT Chem S GFR/1.73 sq M.predicted among non-blacks MDRD (S/P/Bld) [Vol rate/Area] mL/min/1.73 m2 Normal >=59mL/min/1. 73 m2 [facility] Chem S Glucose [Mass/Vol] 105 mg/dL Normal 55 - 199 mg/dL [facility] Remisol Potassium [Moles/Vol] 3.8 mmol/L Normal 3.5 - 5.3 mmol/L [facility] Remisol Prealbumin IA [Mass/Vol] 21 mg/dL Normal 17 - 42 mg/dL [facility]isol Sodium [Moles/Vol] 134 mmol/L Low 135 - 145 mmol/L [facility] Remisol Urea nitrogen [Mass/Vol] 19 mg/dL Normal 5 - 21 mg/dL [facility] Remisol Urea nitrogen/Creatinine [Mass ratio] 19 mg/mg Normal 10 - 20 [facility] Remisol COAGULATIONOrdered By: Brendan Bruno on 12-22-2021 aPTT Coag (PPP) [Time] 26.5 s Normal 25.1 - 36.5 second(s) [facility] Auto Coag INR Coag (PPP) [Relative time] 1.1 {INR} Invalid Interpretation Code [facility] Auto Coag PT Coag (PPP) [Time] 13.0 s High 10.2 - 12.9 second(s) [facility] Auto Coag HEMATOLOGYOrdered By: Jose Juan Spencer on 12-22-2021 Hematocrit (Bld) [Volume fraction] 39.7 % Normal 37.7 - 49.0 % [facility] HemeAutoSS Hemoglobin (Bld) [Mass/Vol] 13.7 g/dL Normal 13.5 - 17.5 gm/dL [facility] CHEMISTRYOrdered By: SYSTEM SYSTEM on 12-21-2021 Anion gap [Moles/Vol] 11 mmol/L Normal 6 - 16 mEq/L F [facility] Remisol Calcium [Mass/Vol] 8.6 mg/dL Low 8.9 - 11. 1 mg/dL [facility] Remisol Chloride [Moles/Vol] 102 mmol/L Normal 101 - 1 11 mmol/L [facility] CO2 [Moles/Vol] 25 mmol/L Normal 21 - 31 mmol/L [facility] Remisol Creatinine [Mass/Vol] 1.2 mg/dL Normal 0.5 - 1.3 mg/dL [facility] Remisol GFR/1.73 sq M.predicted among blacks MDRD (S/P/Bld) [Vol rate/Area] mL/min/1.73 m2 Normal >=59mL/min/1. 73 m2 [facility] Chem S GFR/1.73 sq M.predicted among non-blacks MDRD (S/P/Bld) [Vol rate/Area] 60 mL/min/1.73 m2 Normal >=59mL/min/1. 73 m2 [facility] Chem S Glucose [Mass/Vol] 110 mg/dL Normal 55 - 199 mg/dL [facility] Remisol Potassium [Moles/Vol] 4.2 mmol/L Normal 3.5 - 5.3 mmol/L [facility] Remisol Sodium [Moles/Vol] 134 mmol/L Low 135 - 145 mmol/L [facility] Rem[facility] Urea nitrogen [Mass/Vol] 13 mg/dL Normal 5 - 21 mg/dL [facility] Remisol Urea nitrogen/Creatinine [Mass ratio] 11 mg/mg Normal 10 - 20 [facility] Remisol HEMATOLOGYOrdered By: Jose Juan Spencer on 12-21-2021 Hematocrit (Bld) [Volume fraction] 41.6 % Normal 37.7 - 49.0 % [facility] HemeAutoSS Hemoglobin (Bld) [Mass/Vol] 14.2 g/dL Normal 13.5 - 17.5 gm/dL [facility] HemeAutoSS CHEMISTRYOrdered By: SYSTEM SYSTEM on 12-11-2021 Albumin [Mass/Vol] 4.1 g/dL Normal 3.3 - 5.0 gm/dL [facility] Remisol Albumin/Globulin [Mass ratio] 1.3 {ratio} Normal 1.1 - 2.2 [facility] ALP [Catalytic activity/Vol] 50 [iU]/d Normal 21 - 98 Int._Unit/L [facility] ALT No additional P-5'-P [Catalytic activity/Vol] 21 [iU]/d Normal 6 - 46 Int._Unit/L [facility] Remisol Anion gap [Moles/Vol] 13 mmol/L Normal 6 - 16 mEq/L [facility] AST [Catalytic activity/Vol] 20 [iU]/d Normal 5 - 43 Int._Unit/L [facility] Bilirubin [Mass/Vol] 0.7 mg/dL Normal 0.0 - 1 .1 mg/dL [facility] Calcium [Mass/Vol] 9.2 mg/dL Normal 8.9 - 11. 1 mg/dL [facility] Chloride [Moles/Vol] 103 mmol/L Normal 101 - 1 11 mmol/L [facility] Cholesterol [Mass/Vol] 191 mg/dL Normal 120 - 200 mg/dL [facility] Cholesterol in HDL [Mass/Vol] 34 mg/dL Invalid Interpretation Code [facility] Cholesterol in LDL [Mass/Vol] 100 mg/dL Normal <=129mg/dL [facility] Cholesterol in VLDL [Mass/Vol] 77 mg/dL High 7 - 40 mg/dL [facility] CO2 [Moles/Vol] 26 mmol/L Normal 21 - 31 mmol/L [facility] Creatinine [Mass/Vol] 1.1 mg/dL Normal 0.5 - 1.3 mg/dL [facility]isol GFR/1.73 sq M.predicted among blacks MDRD (S/P/Bld) [Vol rate/Area] mL/min/1.73 m2 Normal >=59mL/min/1. 73 m2 [facility] Chem S GFR/1.73 sq M.predicted among non-blacks MDRD (S/P/Bld) [Vol rate/Area] mL/min/1.73 m2 Normal >=59mL/min/1. 73 m2 [facility] Chem S Globulin (S) [Mass/Vol] 3.2 g/dL Normal 1.4 - 4.0 gm/dL [facility] Glucose [Mass/Vol] 101 mg/dL Normal 55 - 199 mg/dL [facility] Potassium [Moles/Vol] 4.0 mmol/L Normal 3.5 - 5.3 mmol/L [facility] Protein [Mass/Vol] 7.3 g/dL Normal 6.0 - 7.8 gm/dL [facility] Sodium [Moles/Vol] 138 mmol/L Normal 135 - 145 mmol/L [facility] Triglyceride [Mass/Vol] 384 mg/dL High <=149mg/dL [facility] TSH Qn 1.23 m[IU]/L Normal 0.34 - 5.60 mcIU/mL [facility] Urea nitrogen [Mass/Vol] 18 mg/dL Normal 5 - 21 mg/dL [facility] Urea nitrogen/Creatinine [Mass ratio] 16 mg/mg Normal 10 - 20 [facility] HEMATOLOGYOrdered By: SYSTEM SYSTEM on 12-11-2021 Basophils/100 WBC (Bld) 0.5 % Normal 0.0 - 2.0 % [facility] Basophils/Leukocytes Auto (Bld) [Pure # fraction] 0.0 E9/L Normal 0.0 - 0.2 E9/L [facility] Eosinophils/100 WBC (Bld) 3.4 % Normal 0.0 - 8.0 % [facility]eAuto[facility] Eosinophils/Leukocytes Auto (Bld) [Pure # fraction] 0.2 E9/L Normal 0.0 - 0.5 E9/L [facility] Lymphocytes/100 WBC (Bld) 18.9 % Normal 14.0 - 50.0 % [facility]eAuto[facility] Lymphocytes/Leukocytes Auto (Bld) [Pure # fraction] 1.3 E9/L Normal 1.0 - 4.0 E9/L [facility] Monocytes/100 WBC (Bld) 8.3 % Normal 4.0 - 14.0 % [facility]eAuto[facility] Monocytes/Leukocytes Auto (Bld) [Pure # fraction] 0.6 E9/L Normal 0.2 - 1.0 E9/L [facility] Neutrophils/100 WBC (Bld) 68.9 % Normal 36.0 - 75.0 % [facility]eAuto[facility] Neutrophils/Leukocytes Auto (Bld) [Pure # fraction] 4.7 E9/L Normal 2.0 - 7.5 E9/L [facility] HEMATOLOGYOrdered By: Jose Juan Spencer on 12-11-2021 Erythrocyte distribution width (RBC) [Ratio] 13.6 % Normal 10.9 - 14.2 % [facility] Hematocrit (Bld) [Volume fraction] 44.2 % Normal 37.7 - 49.0 % [facility] Hemoglobin (Bld) [Mass/Vol] 15.0 g/dL Normal 13.5 - 17.5 gm/dL [facility] MCH (RBC) [Entitic mass] 31.0 pg Normal 27.0 - 34.0 pg [facility] MCHC (RBC) [Mass/Vol] 33.9 g/dL Normal 31.4 - 36.0 gm/dL [facility] MCV (RBC) [Entitic vol] 91.6 fL Normal 80.0 - 100.0 fL [facility] Platelet mean volume (Bld) [Entitic vol] 9.1 fL Normal 6.4 - 10.8 fL [facility] Platelets (Bld) [#/Vol] 230.0 E9/L Normal 150.0 - 500.0 E9/L [facility] RBC (Bld) [#/Vol] 4.8 E12/L Normal 4.3 - 5.9 E12/L [facility] WBC corrected for nucl RBC Auto (Bld) [#/Vol] 6.8 E9/L Normal 4.0 - 11.0 E9/L [facility] CHEMISTRYOrdered By: SYSTEM SYSTEM on 12-07-2021 Anion gap [Moles/Vol] 13 mmol/L Normal 6 - 16 mEq/L F [facility] Remisol Calcium [Mass/Vol] 9.1 mg/dL Normal 8.9 - 11. 1 mg/dL [facility] Remisol Chloride [Moles/Vol] 103 mmol/L Normal 101 - 1 11 mmol/L [facility] CO2 [Moles/Vol] 26 mmol/L Normal 21 - 31 mmol/L [facility] Creatinine [Mass/Vol] 1.1 mg/dL Normal 0.5 - 1.3 mg/dL [facility] GFR/1.73 sq M.predicted among blacks MDRD (S/P/Bld) [Vol rate/Area] mL/min/1.73 m2 Normal >=59mL/min/1. 73 m2 [facility] Chem S GFR/1.73 sq M.predicted among non-blacks MDRD (S/P/Bld) [Vol rate/Area] mL/min/1.73 m2 Normal >=59mL/min/1. 73 m2 [facility] Chem S Glucose [Mass/Vol] 87 mg/dL Normal 55 - 199 mg/dL [facility] Remisol Potassium [Moles/Vol] 5.0 mmol/L Normal 3.5 - 5.3 mmol/L [facility] Sodium [Moles/Vol] 137 mmol/L Normal 135 - 145 mmol/L [facility] Urea nitrogen [Mass/Vol] 16 mg/dL Normal 5 - 21 mg/dL [facility] Urea nitrogen/Creatinine [Mass ratio] 14 mg/mg Normal 10 - 20 [facility] COAGULATIONOrdered By: Hussein Reynaga on 12-07-2021 aPTT Coag (PPP) [Time] 30.8 s Normal 25.1 - 36.5 second(s) [facility] Auto Coag INR Coag (PPP) [Relative time] 1.0 {INR} Invalid Interpretation Code [facility] Auto Coag PT Coag (PPP) [Time] 11.5 s Normal 10.2 - 12.9 second(s) [facility] Auto Coag HEMATOLOGYOrdered By: SYSTEM SYSTEM on 12-07-2021 Basophils/100 WBC (Bld) 0.8 % Normal 0.0 - 2.0 % [facility] Basophils/Leukocytes Auto (Bld) [Pure # fraction] 0.1 E9/L Normal 0.0 - 0.2 E9/L [facility] Eosinophils/100 WBC (Bld) 2.3 % Normal 0.0 - 8.0 % [facility] Eosinophils/Leukocytes Auto (Bld) [Pure # fraction] 0.2 E9/L Normal 0.0 - 0.5 E9/L [facility] Lymphocytes/100 WBC (Bld) 18.9 % Normal 14.0 - 50.0 % [facility] Lymphocytes/Leukocytes Auto (Bld) [Pure # fraction] 1.3 E9/L Normal 1.0 - 4.0 E9/L [facility] Monocytes/100 WBC (Bld) 7.9 % Normal 4.0 - 14.0 % [facility] Monocytes/Leukocytes Auto (Bld) [Pure # fraction] 0.6 E9/L Normal 0.2 - 1.0 E9/L [facility] Neutrophils/100 WBC (Bld) 70.1 % Normal 36.0 - 75.0 % [facility] Neutrophils/Leukocytes Auto (Bld) [Pure # fraction] 4.9 E9/L Normal 2.0 - 7.5 E9/L [facility] HEMATOLOGYOrdered By: Maria M fuller on 12-07-2021 Erythrocyte distribution width (RBC) [Ratio] 13.3 % Normal 10.9 - 14.2 % [facility] Hematocrit (Bld) [Volume fraction] 43.9 % Normal 37.7 - 49.0 % [facility] Hemoglobin (Bld) [Mass/Vol] 15.0 g/dL Normal 13.5 - 17.5 gm/dL [facility] MCH (RBC) [Entitic mass] 31.3 pg Normal 27.0 - 34.0 pg [facility] MCHC (RBC) [Mass/Vol] 34.3 g/dL Normal 31.4 - 36.0 gm/dL [facility] MCV (RBC) [Entitic vol] 91.2 fL Normal 80.0 - 100.0 fL [facility] Platelet mean volume (Bld) [Entitic vol] 9.4 fL Normal 6.4 - 10.8 fL [facility] Platelets (Bld) [#/Vol] 241.0 E9/L Normal 150.0 - 500.0 E9/L [facility] RBC (Bld) [#/Vol] 4.8 E12/L Normal 4.3 - 5.9 E12/L [facility] WBC corrected for nucl RBC Auto (Bld) [#/Vol] 7.0 E9/L Normal 4.0 - 11.0 E9/L [facility] URINALYSISOrdered By: Hussein Reynaga on 12-07-2021 Bacteria LM Ql (Urine sed) 1+ /HPF Invalid Interpretation Code Trace/HPF [facility] UA Auto SS Bilirubin Ql (U) Negative (12/07/21 7:50 AM) Normal Negative [facility] UA Auto SS Clarity (U) Clear (12/07/21 7:50 AM) Normal Clear [facility] UA Auto SS Color (U) Yellow (12/07/21 7:50 AM) Normal Yellow [facility] UA Auto SS Epithelial cells.squamous LM.HPF (Urine sed) [#/Area] 0-2 /HPF Normal 0-2/HPF [facility] UA Aut o SS Glucose Test strip (U) [Mass/Vol] Negative (12/07/21 7:50 AM) Normal Negative [facility] UA Auto SS Hemoglobin Ql (U) Negative (12/07/21 7:50 AM) Normal Negative [facility]A Auto SS Ketones (U) [Mass/Vol] Trace *ABN* (12/07/21 7:50 AM) Invalid Interpretation Code Negative [facility] UA Auto SS Cornish.plasma/Cornish .RBC (Bld) [Mass ratio] 0-3 /HPF Normal 0-3/HPF [facility] UA Auto SS Mucus Ql (Urine sed) 3+ (12/07/21 7:50 AM) Normal [facility] UA Auto SS Nitrite Ql (U) Negative (12/07/21 7:50 AM) Normal Negative [facility] UA Auto SS pH (U) 5.5 *NA* (12/07/21 7:50 AM) Invalid Interpretation Code 5.0 - 9.0 [facility] UA Auto SS Protein (U) [Mass/Vol] 2+ *ABN* (12/07/21 7:50 AM) Invalid Interpretation Code Negative [facility] UA Auto SS Specific gravity (U) [Rel density] >=1.030 *NA* (12/07/21 7:50 AM) Invalid Interpretation Code 1.005 - 1.030 [facility] Auto SS UA Spec Desc Clean Catch (12/07/21 7:50 AM) Normal [facility]A Auto SS Urobilinogen Qn (U) [id number] {Rosemarie'U}/dL Normal 0.0 - 1.0 EU/dL [facility]A Auto SS WBC Auto Ql (U) Negative (12/07/21 7:50 AM) Normal Negative [facility]A Auto SS WBC casts LM.LPF (Urine sed) [#/Area] 4-10 (12/07/21 7:50 AM) Normal [facility]A Auto SS WBC LM.HPF (Urine sed) [#/Area] 0-5 /HPF Normal 0-5/HPF [facility] UA Auto SS Vital Signs Date Time Vital Sign Value Performing Clinician Facility 09-04-2022 10:54-0500 Diastolic blood pressure 98 mm[Hg] DO Huong Arthur Work Phone: [facility] 09-04-2022 10:54-0500 Heart rate 88 /min DO Huong Arthur Work Phone: [facility] 09-04-2022 10:54-0500 Respiratory rate 16 /min DO Huong Arthur Work Phone: [facility] 09-04-2022 10:54-0500 SaO2% (BldA) [Mass fraction] 96 % DO Huong Arthur Work Phone: [facility] 09-04-2022 10:54-0500 Systolic blood pressure 142 mm[Hg] DO Huong Arthur Work Phone: [facility] 09-04-2022 07:28-0500 Body height 177.8 cm DO Huong Arthur Work Phone: [facility] 09-04-2022 07:28-0500 Body temperature 97.9 [degF] DO Huong Arthur Work Phone: [facility] 09-04-2022 07:28-0500 Body weight 87.54 kg DO Huong Arthur Work Phone: [facility] 01-01-2022 10:49-0400 Blood Pressure Location Mike COOK [facility] 01-01-2022 10:49-0400 Diastolic blood pressure 74 mm[Hg] Mike COOK [facility] 01-01-2022 10:49-0400 Heart rate 87 /min Mike COOK [facility] 01-01-2022 10:49-0400 Respiratory rate 16 /min Miek COOK [facility] 01-01-2022 10:49-0400 Systolic blood pressure 132 mm[Hg] Mike COOK [facility] 12-22-2021 16:06-0400 Body temperature 97.52 [degF] Mike COOK [facility] 12-22-2021 16:06-0400 Diastolic blood pressure 74 mm[Hg] Mike COOK [facility] 12-22-2021 16:06-0400 Heart rate 68 /min Mike COOK [facility] 12-22-2021 16:06-0400 Mean blood pressure 93 mm[Hg] Mike COOK [facility] 12-22-2021 16:06-0400 Respiratory rate 16 /min Mike COOK [facility] 12-22-2021 16:06-0400 SaO2% (BldA) [Mass fraction] 95 % Mike AGUILAR [facility] 12-22-2021 16:06-0400 Systolic blood pressure 133 mm[Hg] Mike COOK [facility] 12-22-2021 15:35-0400 Heart rate 72 /min Mike COOK [facility] 12-22-2021 15:35-0400 Respiratory rate 16 /min Mike AGUILAR [facility] 12-22-2021 15:15-0400 Heart rate 70 /min Mike AGUILAR [facility] 12-22-2021 15:15-0400 Respiratory rate 16 /min Mike AGUILAR [facility] 12-22-2021 15:00-0400 Hourly Rounding Mike AGUILAR [facility] 12-22-2021 15:00-0400 Promise to Return Mike AGUILAR [facility] 12-22-2021 11:42-0400 Body temperature 97.34 [degF] Mike AGUILAR [facility] 12-22-2021 11:42-0400 Diastolic blood pressure 83 mm[Hg] Mike COOK [facility] 12-22-2021 11:42-0400 Mean blood pressure 100 mm[Hg] Mike COOK [facility] 12-22-2021 11:42-0400 SaO2% (BldA) [Mass fraction] 100 % Mike COOK [facility] 12-22-2021 11:42-0400 Systolic blood pressure 133 mm[Hg] Mike AGUILAR [facility] 12-22-2021 08:27-0400 Diastolic blood pressure 93 mm[Hg] Mike COOK [facility] 12-22-2021 08:27-0400 Systolic blood pressure 139 mm[Hg] Mike AGUILAR [facility] 12-22-2021 07:30-0400 Body temperature 97.7 [degF] Mike AGUILAR [facility] 12-22-2021 07:30-0400 Mean blood pressure 108 mm[Hg] Mike AGUILAR [facility] 12-22-2021 07:30-0400 SaO2% (BldA) [Mass fraction] 95 % Mike AGUILAR [facility] 12-22-2021 00:00-0400 Mean blood pressure 96 mm[Hg] Mike AGUILAR [facility] 12-21-2021 19:20-0400 Blood Pressure Location Mike AGUILAR [facility] 12-21-2021 19:20-0400 BP/Pulse Patient Position Mike AGUILAR [facility] 12-21-2021 18:26-0400 Blood Pressure Location Mike AGUILAR [facility] 12-21-2021 18:26-0400 BP/Pulse Patient Position Mike AGUILAR [facility] 12-21-2021 07:00-0400 Heart rate 77 /min Mike COOK [facility] 12-21-2021 03:55-0400 Heart rate 88 /min Mike AGUILAR [facility] 12-21-2021 03:55-0400 Mean blood pressure 83 mm[Hg] Mike COOK [facility] 12-21-2021 02:07-0400 Mean blood pressure 140 mm[Hg] Mike COOK [facility] 12-20-2021 23:05-0400 Heart rate 90 /min Mike COOK [facility] 12-20-2021 18:00-0400 Blood Pressure Location Mike COOK [facility] 12-20-2021 17:13-0400 Respiratory rate 18 /min Mike COOK [facility] 12-20-2021 11:43-0400 Body temperature 97.88 [degF] Mike COOK [facility] 12-20-2021 11:43-0400 Respiratory rate 20 /min Mike COOK [facility] 12-20-2021 11:30-0400 Respiratory rate 23 /min Mike COOK [facility] 12-20-2021 11:17-0400 Body temperature 97.7 [degF] Mike COOK [facility] 12-20-2021 07:47-0400 Heart rate 66 /min Mike COOK [facility] 12-07-2021 07:44-0400 Blood Pressure Location Mike COOK [facility] 12-07-2021 07:44-0400 Diastolic blood pressure 103 mm[Hg] Mike COOK [facility] 12-07-2021 07:44-0400 Heart rate 73 /min Mike COOK [facility] 12-07-2021 07:44-0400 Mean blood pressure 119 mm[Hg] Mike COOK [facility] 12-07-2021 07:44-0400 Respiratory rate 16 /min Mike AGUILAR [facility] 12-07-2021 07:44-0400 Systolic blood pressure 150 mm[Hg] Mike AGUILAR [facility] 12-07-2021 07:44-0400 Body temperature 97.7 [degF] Mike AGUILAR [facility] 12-07-2021 07:43-0400 Diastolic blood pressure 99 mm[Hg] Mike AGUILAR [facility] 12-07-2021 07:43-0400 Heart rate 74 /min Mike AGUILAR [facility] 12-07-2021 07:43-0400 Mean blood pressure 113 mm[Hg] Mike AGUILAR [facility] 12-07-2021 07:43-0400 Systolic blood pressure 142 mm[Hg] Mike AGUILAR [facility] 12-07-2021 07:43-0400 Blood Pressure Location Mike AGUILAR [facility] 12-07-2021 07:43-0400 SaO2% (BldA) [Mass fraction] 96 % Mike AGUILAR [facility] 03-11-2019 09:45-0400 BP Diastolic 114 mm[Hg] [facility] 03-11-2019 09:45-0400 BP Systolic 181 mm[Hg] [facility] 03-11-2019 09:45-0400 Pulse (Heart Rate) 58 /min [facility] 03-11-2019 09:45-0400 Pulse Oximetry 97 % [facility] 03-11-2019 09:45-0400 Respiratory Rate 16 /min [facility] 03-11-2019 07:43-0400 BMI (Body Mass Index) 25.5 kg/m2 [facility] 03-11-2019 07:43-0400 Body weight 80.73 kg [facility] 03-11-2019 07:43-0400 Height 177.8 cm [facility] Encounters Encounter Date Encounter Type Care Provider Facility Start: 07-01-2024 ambulatory Mike AGUILAR Facility :[facility] Start: 10-16-2023 ambulatory Mike AGUILAR Facility :[facility] Start: 07-19-2023 End: 07-19-2023 ambulatory HUONG ARTHUR Not Available Start: 07-15-2023 End: 07-16-2023 ambulatory Elena Hightower MD Facility:[facility] Start: 06-12-2023 End: 06-13-2023 [facility]ulatory [facility] Start: 06-12-2023 End: 06-12-2023 Patient encounter procedure Mike AGUILAR [facility] Start: 05-20-2023 End: 05-21-2023 ambulatory Elena Hightower MD Facility:[facility] Start: 04-22-2023 End: 04-23-2023 ambulatory Elena Hightower MD Facility:[facility] Start: 02-25-2023 End: 02-26-2023 ambulatory Andshanae Hightower MD Facility:[facility] Start: 02-20-2023 End: 02-21-2023 ambulatory [facility]AR [facility] Start: 02-20-2023 End: 02-20-2023 Patient encounter procedure Mike AGUILAR [facility] Start: 02-04-2023 End: 02-05-2023 ambulatory Andrius Vytautas Giedraitis MD Facility:[facility] Start: 11-15-2022 End: 11-15-2022 ambulatory Villa Singleton Facility:[facility] Start: 11-15-2022 End: 11-15-2022 ambulatory DO Huongvandana Arthur Work Phone: [facility] Work Phone: Start: 11-15-2022 End: 11-15-2022 Patient encounter procedure DO Huong Arthur Work Phone: [facility] [address] Work Phone: Start: 09-11-2022 ambulatory Mike AGUILAR Facility :[facility] Start: 09-04-2022 End: 09-04-2022 ambulatory Jourdan Hammer Facility:[facility] Start: 09-04-2022 End: 09-04-2022 Admission to same day surgery center DO Huong Miguel Ángel Work Phone: [facility] Work Phone: Start: 09-04-2022 End: 09-04-2022 ambulatory DO Huong Arthur Work Phone: [facility] Work Phone: Start: 02-14-2022 End: 02-14-2022 Patient encounter procedure Mike AGUILAR [facility] Start: 01-01-2022 End: 01-01-2022 Patient encounter procedure Mike AGUILAR [facility] Start: 12-26-2021 End: 12-26-2021 Patient encounter procedure Mike AGUILAR [facility] Start: 12-20-2021 End: 12-22-2021 Observation Mike AGUILAR [facility] Start: 12-11-2021 End: 12-11-2021 Patient encounter procedure HUONG ARTHUR [facility] Start: 12-07-2021 End: 12-07-2021 Patient encounter procedure Mike AGUILAR [facility] Start: 05-14-2019 End: 05-14-2019 Patient encounter procedure Huong Miguel Ángel -CT Scan [facility] Start: 03-19-2019 End: 03-19-2019 Patient encounter procedure Huong Miguel Ángel -XRay [facility] Start: 03-11-2019 End: 03-11-2019 Patient encounter procedure Huong Miguel Ángel -XRay [facility] Start: 01-07-2019 End: 01-07-2019 Patient encounter procedure Huongvandana Arthur -XR[address]ina [address] Procedures Date Procedure Procedure Detail Performing Clinician Start: 11-15-2022 CT of lungs DO Huong Arthur Work Phone: Start: 09-04-2022 Colonoscopy DO Huong Arthur Work Phone: Start: 12-20-2021 Transurethral prostatectomy Mike AGUILAR Start: 01-02-2021 Transurethral water vapor ablation of prostate Mike AGUILAR Start: 12-08-2020 Biopsy of prostate Chuy AGUILAR Start: 09-20-2020 Local anesthetic intercostal nerve block Mike AGUILAR Comment on above: T11+T12 no relief Start: 05-14-2019 CT of lungs Huong singleton Start: 03-19-2019 Diagnostic radiograp hy of lumbar spine Huong Arthur Start: 03-11-2019 Computerized axial tomography of lumbar spine with contrast Huong Arthur Start: 03-11-2019 Lumbosacral myelography Huong Arthur Start: 10-10-2014 1/2 left kidney removed Mike AGUILAR Start: 03-19-2012 [place] Comment on above: Right Colonoscopy Mike AGUILAR Plan of Treatment Date Care Activity Detail Author Start: 09-04-2022 [facility] Patient Education Myelogram (DC) [facility] Immunizations Immunization Date Immunization Notes Care Provider Fa cility 06-12-2021 influenza virus vacc ine, unspecified formulation Mike AGUILAR [facility] 03-08-2021 pneumococcal polysaccharide vaccine, 23 valent Mike AGUILAR [facility] 11-08-2020 SARS-CoV-2 (COVID-19 ) mRNA-1273 vaccine Mike AGUILAR [facility] Comment on above: Result Comment: 2 sh ot 11-04-2020 COVID-19 mRNA, Comir griselda (Pfizer) DO Huong Arthur Work Phone: [facility] 10-14-2020 COVID-19 mRNA, Comir griselda (Pfizer) DO Huong Arthur Work Phone: [facility] 10-11-2020 SARS-CoV-2 (COVID-19 ) mRNA-1273 vaccine Mike AGUILAR [facility] Comment on above: Result Comment: 1 ort Payers Date Payer Category Payer Medicare 2022 Private Health Insurance 2022 Private Health Insurance [id number] 2022 Self-pay [id number] 2021 Unknown [id number] 2020 Medicare [id number] 1950 Unknown [id number] 1950 Unknown [id number] 1950 Unknown [id number] [id number] 1950 Unknown [id number] 1950 Unknown [id number] [id number] 1952 Unknown [id number] [id number] 9 1950 Unknown [id number] [id number] 1950 Unknown [id number] [id number] 1950 Unknown [id number] [id number] 1952 Unknown [id number] [id number] 1952 Unknown [id number] [id number] 1950 Unknown [id number] [id number] Private Health Insurance Self Pay [id number] Private Health Insurance [facility] [id number] Unknown [id number] Unknown [id number] Unknown [id number] Social History Date Type Detail Facility Start: 03-11-2019 End: 09-04-2022 Tobacco smoking status NHIS Smoker (finding) [facility] Start: 1950 Sex Assigned At Male [facility] Start: 10-11-2021 End: 02-14-2022 Tobacco smoking status Light tobacco smoker (finding) [facility] Sex Assigned At Male [facility] Goals Date Patient Goal Desired Activity /State Functional Status Date Assessment Result Facility 06-12-2023 Functional Status N/A [facility] 02-14-2022 Functional Status N/A [facility] Clinical Notes 12-22-2021 to 06-12-2023 Note Date & Type Note Facility 06-12-2023 Hospital Discharge instructions Patient Education 06/12/2023 11:35:17 Overactive Bladder, Adult Overactive Bladder, Adult Overactive bladder is a condition in which a person has a sudden and frequent need to urinate. A person might also leak urine if he or she cannot get to the bathroom fast enough (urinary incontinence). Sometimes, symptoms can interfere with work or social activities. What are the causes? Overactive bladder is associated with poor nerve signals between your bladder and your brain. Your bladder may get the signal to empty before it is full. You may also have very sensitive muscles that make your bladder squeeze too soon. This condition may also be caused by other factors, such as: Medical conditions: ?Urinary tract infection. ?Infection of nearby tissues. ?Prostate enlargement. ?Bladder stones, inflammation, or tumors. ?Diabetes. ?Muscle or nerve weakness, especially from these conditions: ?A spinal cord injury. ?Stroke. ?Multiple sclerosis. ?Parkinson's disease. Other causes: ?Surgery on the uterus or urethra. ?Drinking too much caffeine or alcohol. ?Certain medicines, especially those that eliminate extra fluid in the body (diuretics). ?Constipation. What increases the risk? You may be at greater risk for overactive bladder if you: Are an older adult. Smoke. Are going through menopause. Have prostate problems. Have a neurological disease, such as stroke, dementia, Parkinson's disease, or multiple sclerosis (MS). Eat or drink alcohol, spicy food, caffeine, and other things that irritate the bladder. Are overweight or obese. What are the signs or symptoms? Symptoms of this condition include a sudden, strong urge to urinate. Other symptoms include: Leaking urine. Urinating 8 or more times a day. Waking up to urinate 2 or more times overnight. How is this diagnosed? This condition may be diagnosed based on: Your symptoms and medical history. A physical exam. Blood or urine tests to check for possible causes, such as infection. You may also need to see a health care provider who specializes in urinary tract problems. This is called a urologist. How is this treated? Treatment for overactive bladder depends on the cause of your condition and whether it is mild or severe. Treatment may include: Bladder training, such as: ?Learning to control the urge to urinate by following a schedule to urinate at regular intervals. ?Doing Kegel exercises to strengthen the pelvic floor muscles that support your bladder. Special devices, such as: ?Biofeedback. This uses sensors to help you become aware of your body's signals. ?Electrical stimulation. This uses electrodes placed inside the body (implanted) or outside the body. These electrodes send gentle pulses of electricity to strengthen the nerves or muscles that control the bladder. ?Women may use a plastic device, called a pessary, that fits into the vagina and supports the bladder. Medicines, such as: ?Antibiotics to treat bladder infection. ?Antispasmodics to stop the bladder from releasing urine at the wrong time. ?Tricyclic antidepressants to relax bladder muscles. ?Injections of botulinum toxin type A directly into the bladder tissue to relax bladder muscles. Surgery, such as: ?A device may be implanted to help manage the nerve signals that control urination. ?An electrode may be implanted to stimulate electrical signals in the bladder. ?A procedure may be done to change the shape of the bladder. This is done only in very severe cases. Follow these instructions at home: Eating and drinking Make diet or lifestyle changes recommended by your health care provider. These may include: ?Drinking fluids throughout the day and not only with meals. ?Cutting down on caffeine or alcohol. ?Eating a healthy and balanced diet to prevent constipation. This may include: ?Choosing foods that are high in fiber, such as beans, whole grains, and fresh fruits and vegetables. ?Limiting foods that are high in fat and processed sugars, such as fried and sweet foods. Lifestyle Lose weight if needed. Do not use any products that contain nicotine or tobacco. These include cigarettes, chewing tobacco, and vaping devices, such as e-cigarettes. If you need help quitting, ask your health care provider. General instructions Take xmbn-bbp-lxwtnys and prescription medicines only as told by your health care provider. If you were prescribed an antibiotic medicine, take it as told by your health care provider. Do not stop taking the antibiotic even if you start to feel better. Use any implants or pessary as told by your health care provider. If needed, wear pads to absorb urine leakage. Keep a log to track how much and when you drink, and when you need to urinate. This will help your health care provider monitor your condition. Keep all follow-up visits. This is important. Contact a health care provider if: You have a fever or chills. Your symptoms do not get better with treatment. Your pain and discomfort get worse. You have more frequent urges to urinate. Get help right away if: You are not able to control your bladder. Summary Overactive bladder refers to a condition in which a person has a sudden and frequent need to urinate. Several conditions may lead to an overactive bladder. Treatment for overactive bladder depends on the cause and severity of your condition. Making lifestyle changes, doing Kegel exercises, keeping a log, and taking medicines can help with this condition. This information is not intended to replace advice given to you by your health care provider. Make sure you discuss any questions you have with your health care provider. Document Revised: 04/17/2021 Document Reviewed: 04/17/2021 [employer] Patient Education 2022 [employer] Follow Up Care 02/20/2023 09:40:04 With:LAUREN WHITT, Mike Hughes, URL Address: [address] [address]- When: Unknown [facility] 09-11-2022 Hospital Discharge instructions Follow Up Care 09/11/2022 10:42:12 With:Mike AGUILAR MD, URL Address: [address] [address]- When: Unknown With:Mike AGUILAR MD, URL Address: [address] [address]- When: Unknown [facility] 09-04-2022 Procedure note [facility] 02-14-2022 Hospital Discharge instructions Patient Education 02/14/2022 09:18:13 Benign Prostatic Hyperplasia Benign Prostatic Hyperplasia Benign prostatic hyperplasia (BPH) is an enlarged prostate gland that is caused by the normal aging process and not by cancer. The prostate is a walnut-sized gland that is involved in the production of semen. It is located in front of the rectum and below the bladder. The bladder stores urine and the urethra is the tube that carries the urine out of the body. The prostate may get bigger as a man gets older. An enlarged prostate can press on the urethra. This can make it harder to pass urine. The build-up of urine in the bladder can cause infection. Back pressure and infection may progress to bladder damage and kidney (renal) failure. What are the causes? This condition is part of a normal aging process. However, not all men develop problems from this condition. If the prostate enlarges away from the urethra, urine flow will not be blocked. If it enlarges toward the urethra and compresses it, there will be problems passing urine. What increases the risk? This condition is more likely to develop in men over the age of 50 years. What are the signs or symptoms? Symptoms of this condition include: Getting up often during the night to urinate. Needing to urinate frequently during the day. Difficulty starting urine flow. Decrease in size and strength of your urine stream. Leaking (dribbling) after urinating. Inability to pass urine. This needs immediate treatment. Inability to completely empty your bladder. Pain when you pass urine. This is more common if there is also an infection. Urinary tract infection (UTI). How is this diagnosed? This condition is diagnosed based on your medical history, a physical exam, and your symptoms. Tests will also be done, such as: A post-void bladder scan. This measures any amount of urine that may remain in your bladder after you finish urinating. A digital rectal exam. In a rectal exam, your health care provider checks your prostate by putting a lubricated, gloved finger into your rectum to feel the back of your prostate gland. This exam detects the size of your gland and any abnormal lumps or growths. An exam of your urine (urinalysis). A prostate specific antigen (PSA) screening. This is a blood test used to screen for prostate cancer. An ultrasound. This test uses sound waves to electronically produce a picture of your prostate gland. Your health care provider may refer you to a specialist in kidney and prostate diseases (urologist). How is this treated? Once symptoms begin, your health care provider will monitor your condition (active surveillance or watchful waiting). Treatment for this condition will depend on the severity of your condition. Treatment may include: Observation and yearly exams. This may be the only treatment needed if your condition and symptoms are mild. Medicines to relieve your symptoms, including: ?Medicines to shrink the prostate. ?Medicines to relax the muscle of the prostate. Surgery in severe cases. Surgery may include: ?Prostatectomy. In this procedure, the prostate tissue is removed completely through an open incision or with a laparoscope or robotics. ?Transurethral resection of the prostate (TURP). In this procedure, a tool is inserted through the opening at the tip of the penis (urethra). It is used to cut away tissue of the inner core of the prostate. The pieces are removed through the same opening of the penis. This removes the blockage. ?Transurethral incision (TUIP). In this procedure, small cuts are made in the prostate. This lessens the prostate's pressure on the urethra. ?Transurethral microwave thermotherapy (TUMT). This procedure uses microwaves to create heat. The heat destroys and removes a small amount of prostate tissue. ?Transurethral needle ablation (TUNA). This procedure uses radio frequencies to destroy and remove a small amount of prostate tissue. ?Interstitial laser coagulation (ILC). This procedure uses a laser to destroy and remove a small amount of prostate tissue. ?Transurethral electrovaporization (TUVP). This procedure uses electrodes to destroy and remove a small amount of prostate tissue. ?Prostatic urethral lift. This procedure inserts an implant to push the lobes of the prostate away from the urethra. Follow these instructions at home: Take mazr-jbv-wpafwxc and prescription medicines only as told by your health care provider. Monitor your symptoms for any changes. Contact your health care provider with any changes. Avoid drinking large amounts of liquid before going to bed or out in public. Avoid or reduce how much caffeine or alcohol you drink. Give yourself time when you urinate. Keep all follow-up visits as told by your health care provider. This is important. Contact a health care provider if: You have unexplained back pain. Your symptoms do not get better with treatment. You develop side effects from the medicine you are taking. Your urine becomes very dark or has a bad smell. Your lower abdomen becomes distended and you have trouble passing your urine. Get help right away if: You have a fever or chills. You suddenly cannot urinate. You feel lightheaded, or very dizzy, or you faint. There are large amounts of blood or clots in the urine. Your urinary problems become hard to manage. You develop moderate to severe low back or flank pain. The flank is the side of your body between the ribs and the hip. These symptoms may represent a serious problem that is an emergency. Do not wait to see if the symptoms will go away. Get medical help right away. Call your local emergency services (911 in the [place] Do not drive yourself to the hospital. Summary Benign prostatic hyperplasia (BPH) is an enlarged prostate that is caused by the normal aging process and not by cancer. An enlarged prostate can press on the urethra. This can make it hard to pass urine. This condition is part of a normal aging process and is more likely to develop in men over the age of 50 years. Get help right away if you suddenly cannot urinate. This information is not intended to replace advice given to you by your health care provider. Make sure you discuss any questions you have with your health care provider. Document Released: 07/29/2006 Document Revised: 06/23/2019 Document Reviewed: 09/02/2017 [employer] Patient Education 2020 [employer]. Follow Up Care 10/23/2021 15:04:53 With:LAUREN WHITT, Mike Hughes, URL Address: [facility] [address] [place] [address]- When:6 weeks [facility] 01-01-2022 Hospital Discharge instructions Patient Education 01/01/2022 11:07:12 Calorie Counting for Weight Loss Calorie Counting for Weight Loss Calories are units of energy. Your body needs a certain amount of calories from food to keep you going throughout the day. When you eat more calories than your body needs, your body stores the extra calories as fat. When you eat fewer calories than your body needs, your body otero fat to get the energy it needs. Calorie counting means keeping track of how many calories you eat and drink each day. Calorie counting can be helpful if you need to lose weight. If you make sure to eat fewer calories than your body needs, you should lose weight. Ask your health care provider what a healthy weight is for you. For calorie counting to work, you will need to eat the right number of calories in a day in order to lose a healthy amount of weight per week. A dietitian can help you determine how many calories you need in a day and will give you suggestions on how to reach your calorie goal. A healthy amount of weight to lose per week is usually 1 2 lb (0.5 0.9 kg). This usually means that your daily calorie intake should be reduced by 500 750 calories. Eating 1,200 1,500 calories per day can help most women lose weight. Eating 1,500 1,800 calories per day can help most men lose weight. What is my plan? My goal is to have calories per day. If I have this many calories per day, I should lose around pounds per week. What do I need to know about calorie counting? In order to meet your daily calorie goal, you will need to: Find out how many calories are in each food you would like to eat. Try to do this before you eat. Decide how much of the food you plan to eat. Write down what you ate and how many calories it had. Doing this is called keeping a food log. To successfully lose weight, it is important to balance calorie counting with a healthy lifestyle that includes regular activity. Aim for 150 minutes of moderate exercise (such as walking) or 75 minutes of vigorous exercise (such as running) each week. Where do I find calorie information? The number of calories in a food can be found on a Nutrition Facts label. If a food does not have a Nutrition Facts label, try to look up the calories online or ask your dietitian for help. Remember that calories are listed per serving. If you choose to have more than one serving of a food, you will have to multiply the calories per serving by the amount of servings you plan to eat. For example, the label on a package of bread might say that a serving size is 1 slice and that there are 90 calories in a serving. If you eat 1 slice, you will have eaten 90 calories. If you eat 2 slices, you will have eaten 180 calories. How do I keep a food log? Immediately after each meal, record the following information in your food log: What you ate. Don't forget to include toppings, sauces, and other extras on the food. How much you ate. This can be measured in cups, ounces, or number of items. How many calories each food and drink had. The total number of calories in the meal. Keep your food log near you, such as in a small notebook in your pocket, or use a mobile sindi or website. Some programs will calculate calories for you and show you how many calories you have left for the day to meet your goal. What are some calorie counting tips? Use your calories on foods and drinks that will fill you up and not leave you hungry: ?Some examples of foods that fill you up are nuts and nut butters, vegetables, lean proteins, and high-fiber foods like whole grains. High-fiber foods are foods with more than 5 g fiber per serving. ?Drinks such as sodas, specialty coffee drinks, alcohol, and juices have a lot of calories, yet do not fill you up. Eat nutritious foods and avoid empty calories. Empty calories are calories you get from foods or beverages that do not have many vitamins or protein, such as candy, sweets, and soda. It is better to have a nutritious high-calorie food (such as an avocado) than a food with few nutrients (such as a bag of chips). Know how many calories are in the foods you eat most often. This will help you calculate calorie counts faster. Pay attention to calories in drinks. Low-calorie drinks include water and unsweetened drinks. Pay attention to nutrition labels for low fat or fat free foods. These foods sometimes have the same amount of calories or more calories than the full fat versions. They also often have added sugar, starch, or salt, to make up for flavor that was removed with the fat. Find a way of tracking calories that works for you. Get creative. Try different apps or programs if writing down calories does not work for you. What are some portion control tips? Know how many calories are in a serving. This will help you know how many servings of a certain food you can have. Use a measuring cup to measure serving sizes. You could also try weighing out portions on a kitchen scale. With time, you will be able to estimate serving sizes for some foods. Take some time to put servings of different foods on your favorite plates, bowls, and cups so you know what a serving looks like. Try not to eat straight from a bag or box. Doing this can lead to overeating. Put the amount you would like to eat in a cup or on a plate to make sure you are eating the right portion. Use smaller plates, glasses, and bowls to prevent overeating. Try not to multitask (for example, watch TV or use your computer) while eating. If it is time to eat, sit down at a table and enjoy your food. This will help you to know when you are full. It will also help you to be aware of what you are eating and how much you are eating. What are tips for following this plan? Reading food labels Check the calorie count compared to the serving size. The serving size may be smaller than what you are used to eating. Check the source of the calories. Make sure the food you are eating is high in vitamins and protein and low in saturated and trans fats. Shopping Read nutrition labels while you shop. This will help you make healthy decisions before you decide to purchase your food. Make a grocery list and stick to it. Cooking Try to cook your favorite foods in a healthier way. For example, try baking instead of frying. Use low-fat dairy products. Meal planning Use more fruits and vegetables. Half of your plate should be fruits and vegetables. Include lean proteins like poultry and fish. How do I count calories when eating out? Ask for smaller portion sizes. Consider sharing an entree and sides instead of getting your own entree. If you get your own entree, eat only half. Ask for a box at the beginning of your meal and put the rest of your entree in it so you are not tempted to eat it. If calories are listed on the menu, choose the lower calorie options. Choose dishes that include vegetables, fruits, whole grains, low-fat dairy products, and lean protein. Choose items that are boiled, broiled, grilled, or steamed. Stay away from items that are buttered, battered, fried, or served with cream sauce. Items labeled crispy are usually fried, unless stated otherwise. Choose water, low-fat milk, unsweetened iced tea, or other drinks without added sugar. If you want an alcoholic beverage, choose a lower calorie option such as a glass of wine or light beer. Ask for dressings, sauces, and syrups on the side. These are usually high in calories, so you should limit the amount you eat. If you want a salad, choose a garden salad and ask for grilled meats. Avoid extra toppings like reyes, cheese, or fried items. Ask for the dressing on the side, or ask for olive oil and vinegar or lemon to use as dressing. Estimate how many servings of a food you are given. For example, a serving of cooked rice is cup or about the size of half a baseball. Knowing serving sizes will help you be aware of how much food you are eating at restaurants. The list below tells you how big or small some common portion sizes are based on everyday objects: ?1 oz 4 stacked dice. ?3 oz 1 deck of cards. ?1 tsp 1 . ?1 Tbsp a ping-pong ball. ?2 Tbsp 1 ping-pong ball. ? cup baseball. ?1 cup 1 baseball. Summary Calorie counting means keeping track of how many calories you eat and drink each day. If you eat fewer calories than your body needs, you should lose weight. A healthy amount of weight to lose per week is usually 1 2 lb (0.5 0.9 kg). This usually means reducing your daily calorie intake by 500 750 calories. The number of calories in a food can be found on a Nutrition Facts label. If a food does not have a Nutrition Facts label, try to look up the calories online or ask your dietitian for help. Use your calories on foods and drinks that will fill you up, and not on foods and drinks that will leave you hungry. Use smaller plates, glasses, and bowls to prevent overeating. This information is not intended to replace advice given to you by your health care provider. Make sure you discuss any questions you have with your health care provider. Document Released: 07/29/2006 Document Revised: 04/17/2019 Document Reviewed: 06/28/2017 [employer] Patient Education 2020 [employer]. 01/01/2022 11:07:10 Overactive Bladder, Adult Overactive Bladder, Adult Overactive bladder refers to a condition in which a person has a sudden need to pass urine. The person may leak urine if he or she cannot get to the bathroom fast enough (urinary incontinence). A person with this condition may also wake up several times in the night to go to the bathroom. Overactive bladder is associated with poor nerve signals between your bladder and your brain. Your bladder may get the signal to empty before it is full. You may also have very sensitive muscles that make your bladder squeeze too soon. These symptoms might interfere with daily work or social activities. What are the causes? This condition may be associated with or caused by: Urinary tract infection. Infection of nearby tissues, such as the prostate. Prostate enlargement. Surgery on the uterus or urethra. Bladder stones, inflammation, or tumors. Drinking too much caffeine or alcohol. Certain medicines, especially medicines that get rid of extra fluid in the body (diuretics). Muscle or nerve weakness, especially from: ?A spinal cord injury. ?Stroke. ?Multiple sclerosis. ?Parkinson's disease. Diabetes. Constipation. What increases the risk? You may be at greater risk for overactive bladder if you: Are an older adult. Smoke. Are going through menopause. Have prostate problems. Have a neurological disease, such as stroke, dementia, Parkinson's disease, or multiple sclerosis (MS). Eat or drink things that irritate the bladder. These include alcohol, spicy food, and caffeine. Are overweight or obese. What are the signs or symptoms? Symptoms of this condition include: Sudden, strong urge to urinate. Leaking urine. Urinating 8 or more times a day. Waking up to urinate 2 or more times a night. How is this diagnosed? Your health care provider may suspect overactive bladder based on your symptoms. He or she will diagnose this condition by: A physical exam and medical history. Blood or urine tests. You might need bladder or urine tests to help determine what is causing your overactive bladder. You might also need to see a health care provider who specializes in urinary tract problems (urologist). How is this treated? Treatment for overactive bladder depends on the cause of your condition and whether it is mild or severe. You can also make lifestyle changes at home. Options include: Bladder training. This may include: ?Learning to control the urge to urinate by following a schedule that directs you to urinate at regular intervals (timed voiding). ?Doing Kegel exercises to strengthen your pelvic floor muscles, which support your bladder. Toning these muscles can help you control urination, even if your bladder muscles are overactive. Special devices. This may include: ?Biofeedback, which uses sensors to help you become aware of your body's signals. ?Electrical stimulation, which uses electrodes placed inside the body (implanted) or outside the body. These electrodes send gentle pulses of electricity to strengthen the nerves or muscles that control the bladder. ?Women may use a plastic device that fits into the vagina and supports the bladder (pessary). Medicines. ?Antibiotics to treat bladder infection. ?Antispasmodics to stop the bladder from releasing urine at the wrong time. ?Tricyclic antidepressants to relax bladder muscles. ?Injections of botulinum toxin type A directly into the bladder tissue to relax bladder muscles. Lifestyle changes. This may include: ?Weight loss. Talk to your health care provider about weight loss methods that would work best for you. ?Diet changes. This may include reducing how much alcohol and caffeine you consume, or drinking fluids at different times of the day. ?Not smoking. Do not use any products that contain nicotine or tobacco, such as cigarettes and e-cigarettes. If you need help quitting, ask your health care provider. Surgery. ?A device may be implanted to help manage the nerve signals that control urination. ?An electrode may be implanted to stimulate electrical signals in the bladder. ?A procedure may be done to change the shape of the bladder. This is done only in very severe cases. Follow these instructions at home: Lifestyle Make any diet or lifestyle changes that are recommended by your health care provider. These may include: ?Drinking less fluid or drinking fluids at different times of the day. ?Cutting down on caffeine or alcohol. ?Doing Kegel exercises. ?Losing weight if needed. ?Eating a healthy and balanced diet to prevent constipation. This may include: ?Eating foods that are high in fiber, such as fresh fruits and vegetables, whole grains, and beans. ?Limiting foods that are high in fat and processed sugars, such as fried and sweet foods. General instructions Take pyux-rqd-brqvplo and prescription medicines only as told by your health care provider. If you were prescribed an antibiotic medicine, take it as told by your health care provider. Do not stop taking the antibiotic even if you start to feel better. Use any implants or pessary as told by your health care provider. If needed, wear pads to absorb urine leakage. Keep a journal or log to track how much and when you drink and when you feel the need to urinate. This will help your health care provider monitor your condition. Keep all follow-up visits as told by your health care provider. This is important. Contact a health care provider if: You have a fever. Your symptoms do not get better with treatment. Your pain and discomfort get worse. You have more frequent urges to urinate. Get help right away if: You are not able to control your bladder. Summary Overactive bladder refers to a condition in which a person has a sudden need to pass urine. Several conditions may lead to an overactive bladder. Treatment for overactive bladder depends on the cause and severity of your condition. Follow your health care provider's instructions about lifestyle changes, doing Kegel exercises, keeping a journal, and taking medicines. This information is not intended to replace advice given to you by your health care provider. Make sure you discuss any questions you have with your health care provider. Document Released: 05/25/2010 Document Revised: 11/19/2019 Document Reviewed: 08/14/2018 [employer] Patient Education 2019 [employer] Follow Up Care 12/21/2021 10:51:25 With:LAUREN WHITT, Mike Hughes, URL Address: When:02/12/2022 [facility] 12-22-2021 Hospital Discharge instructions Patient Education 12/22/2021 16:23:15 High Cholesterol High Cholesterol High cholesterol is a condition in which the blood has high levels of a white, waxy, fat-like substance (cholesterol). The human body needs small amounts of cholesterol. The liver makes all the cholesterol that the body needs. Extra (excess) cholesterol comes from the food that we eat. Cholesterol is carried from the liver by the blood through the blood vessels. If you have high cholesterol, deposits (plaques) may build up on the winston of your blood vessels (arteries). Plaques make the arteries narrower and stiffer. Cholesterol plaques increase your risk for heart attack and stroke. Work with your health care provider to keep your cholesterol levels in a healthy range. What increases the risk? This condition is more likely to develop in people who: Eat foods that are high in animal fat (saturated fat) or cholesterol. Are overweight. Are not getting enough exercise. Have a family history of high cholesterol. What are the signs or symptoms? There are no symptoms of this condition. How is this diagnosed? This condition may be diagnosed from the results of a blood test. If you are older than age 20, your health care provider may check your cholesterol every 4 6 years. You may be checked more often if you already have high cholesterol or other risk factors for heart disease. The blood test for cholesterol measures: Bad cholesterol (LDL cholesterol). This is the main type of cholesterol that causes heart disease. The desired level for LDL is less than 100. Good cholesterol (HDL cholesterol). This type helps to protect against heart disease by cleaning the arteries and carrying the LDL away. The desired level for HDL is 60 or higher. Triglycerides. These are fats that the body can store or burn for energy. The desired number for triglycerides is lower than 150. Total cholesterol. This is a measure of the total amount of cholesterol in your blood, including LDL cholesterol, HDL cholesterol, and triglycerides. A healthy number is less than 200. How is this treated? This condition is treated with diet changes, lifestyle changes, and medicines. Diet changes This may include eating more whole grains, fruits, vegetables, nuts, and fish. This may also include cutting back on red meat and foods that have a lot of added sugar. Lifestyle changes Changes may include getting at least 40 minutes of aerobic exercise 3 times a week. Aerobic exercises include walking, biking, and swimming. Aerobic exercise along with a healthy diet can help you maintain a healthy weight. Changes may also include quitting smoking. Medicines Medicines are usually given if diet and lifestyle changes have failed to reduce your cholesterol to healthy levels. Your health care provider may prescribe a statin medicine. Statin medicines have been shown to reduce cholesterol, which can reduce the risk of heart disease. Follow these instructions at home: Eating and drinking If told by your health care provider: Eat chicken (without skin), fish, veal, shellfish, ground turkey breast, and round or loin cuts of red meat. Do not eat fried foods or fatty meats, such as hot dogs and salami. Eat plenty of fruits, such as apples. Eat plenty of vegetables, such as broccoli, potatoes, and carrots. Eat beans, peas, and lentils. Eat grains such as barley, rice, couscous, and bulgur wheat. Eat pasta without cream sauces. Use skim or nonfat milk, and eat low-fat or nonfat yogurt and cheeses. Do not eat or drink whole milk, cream, ice cream, egg yolks, or hard cheeses. Do not eat stick margarine or tub margarines that contain trans fats (also called partially hydrogenated oils). Do not eat saturated tropical oils, such as coconut oil and palm oil. Do not eat cakes, cookies, crackers, or other baked goods that contain trans fats. General instructions Exercise as directed by your health care provider. Increase your activity level with activities such as gardening, walking, and taking the stairs. Take hdar-baj-xgxroyn and prescription medicines only as told by your health care provider. Do not use any products that contain nicotine or tobacco, such as cigarettes and e-cigarettes. If you need help quitting, ask your health care provider. Keep all follow-up visits as told by your health care provider. This is important. Contact a health care provider if: You are struggling to maintain a healthy diet or weight. You need help to start on an exercise program. You need help to stop smoking. Get help right away if: You have chest pain. You have trouble breathing. This information is not intended to replace advice given to you by your health care provider. Make sure you discuss any questions you have with your health care provider. Document Released: 07/29/2006 Document Revised: 08/01/2018 Document Reviewed: 01/26/2017 [employer] Patient Education 2020 [employer] 12/22/2021 16:22:51 Benign Prostatic Hyperplasia Benign Prostatic Hyperplasia Benign prostatic hyperplasia (BPH) is an enlarged prostate gland that is caused by the normal aging process and not by cancer. The prostate is a walnut-sized gland that is involved in the production of semen. It is located in front of the rectum and below the bladder. The bladder stores urine and the urethra is the tube that carries the urine out of the body. The prostate may get bigger as a man gets older. An enlarged prostate can press on the urethra. This can make it harder to pass urine. The build-up of urine in the bladder can cause infection. Back pressure and infection may progress to bladder damage and kidney (renal) failure. What are the causes? This condition is part of a normal aging process. However, not all men develop problems from this condition. If the prostate enlarges away from the urethra, urine flow will not be blocked. If it enlarges toward the urethra and compresses it, there will be problems passing urine. What increases the risk? This condition is more likely to develop in men over the age of 50 years. What are the signs or symptoms? Symptoms of this condition include: Getting up often during the night to urinate. Needing to urinate frequently during the day. Difficulty starting urine flow. Decrease in size and strength of your urine stream. Leaking (dribbling) after urinating. Inability to pass urine. This needs immediate treatment. Inability to completely empty your bladder. Pain when you pass urine. This is more common if there is also an infection. Urinary tract infection (UTI). How is this diagnosed? This condition is diagnosed based on your medical history, a physical exam, and your symptoms. Tests will also be done, such as: A post-void bladder scan. This measures any amount of urine that may remain in your bladder after you finish urinating. A digital rectal exam. In a rectal exam, your health care provider checks your prostate by putting a lubricated, gloved finger into your rectum to feel the back of your prostate gland. This exam detects the size of your gland and any abnormal lumps or growths. An exam of your urine (urinalysis). A prostate specific antigen (PSA) screening. This is a blood test used to screen for prostate cancer. An ultrasound. This test uses sound waves to electronically produce a picture of your prostate gland. Your health care provider may refer you to a specialist in kidney and prostate diseases (urologist). How is this treated? Once symptoms begin, your health care provider will monitor your condition (active surveillance or watchful waiting). Treatment for this condition will depend on the severity of your condition. Treatment may include: Observation and yearly exams. This may be the only treatment needed if your condition and symptoms are mild. Medicines to relieve your symptoms, including: ?Medicines to shrink the prostate. ?Medicines to relax the muscle of the prostate. Surgery in severe cases. Surgery may include: ?Prostatectomy. In this procedure, the prostate tissue is removed completely through an open incision or with a laparoscope or robotics. ?Transurethral resection of the prostate (TURP). In this procedure, a tool is inserted through the opening at the tip of the penis (urethra). It is used to cut away tissue of the inner core of the prostate. The pieces are removed through the same opening of the penis. This removes the blockage. ?Transurethral incision (TUIP). In this procedure, small cuts are made in the prostate. This lessens the prostate's pressure on the urethra. ?Transurethral microwave thermotherapy (TUMT). This procedure uses microwaves to create heat. The heat destroys and removes a small amount of prostate tissue. ?Transurethral needle ablation (TUNA). This procedure uses radio frequencies to destroy and remove a small amount of prostate tissue. ?Interstitial laser coagulation (ILC). This procedure uses a laser to destroy and remove a small amount of prostate tissue. ?Transurethral electrovaporization (TUVP). This procedure uses electrodes to destroy and remove a small amount of prostate tissue. ?Prostatic urethral lift. This procedure inserts an implant to push the lobes of the prostate away from the urethra. Follow these instructions at home: Take ypsp-pyo-kkuqzen and prescription medicines only as told by your health care provider. Monitor your symptoms for any changes. Contact your health care provider with any changes. Avoid drinking large amounts of liquid before going to bed or out in public. Avoid or reduce how much caffeine or alcohol you drink. Give yourself time when you urinate. Keep all follow-up visits as told by your health care provider. This is important. Contact a health care provider if: You have unexplained back pain. Your symptoms do not get better with treatment. You develop side effects from the medicine you are taking. Your urine becomes very dark or has a bad smell. Your lower abdomen becomes distended and you have trouble passing your urine. Get help right away if: You have a fever or chills. You suddenly cannot urinate. You feel lightheaded, or very dizzy, or you faint. There are large amounts of blood or clots in the urine. Your urinary problems become hard to manage. You develop moderate to severe low back or flank pain. The flank is the side of your body between the ribs and the hip. These symptoms may represent a serious problem that is an emergency. Do not wait to see if the symptoms will go away. Get medical help right away. Call your local emergency services (911 in the [place] Do not drive yourself to the hospital. Summary Benign prostatic hyperplasia (BPH) is an enlarged prostate that is caused by the normal aging process and not by cancer. An enlarged prostate can press on the urethra. This can make it hard to pass urine. This condition is part of a normal aging process and is more likely to develop in men over the age of 50 years. Get help right away if you suddenly cannot urinate. This information is not intended to replace advice given to you by your health care provider. Make sure you discuss any questions you have with your health care provider. Document Released: 07/29/2006 Document Revised: 06/23/2019 Document Reviewed: 09/02/2017 [employer] Patient Education 2020 [employer]. 12/22/2021 16:22:29 Chronic Pain, Adult Chronic Pain, Adult Chronic pain is a type of pain that lasts or keeps coming back (recurs) for at least six months. You may have chronic headaches, abdominal pain, or body pain. Chronic pain may be related to an illness, such as fibromyalgia or complex regional pain syndrome. Sometimes the cause of chronic pain is not known. Chronic pain can make it hard for you to do daily activities. If not treated, chronic pain can lead to other health problems, including anxiety and depression. Treatment depends on the cause and severity of your pain. You may need to work with a pain specialist to come up with a treatment plan. The plan may include medicine, counseling, and physical therapy. Many people benefit from a combination of two or more types of treatment to control their pain. Follow these instructions at home: Lifestyle Consider keeping a pain diary to share with your health care providers. Consider talking with a mental health care provider (psychologist) about how to cope with chronic pain. Consider joining a chronic pain support group. Try to control or lower your stress levels. Talk to your health care provider about strategies to do this. General instructions Take vpej-apy-tehmorz and prescription medicines only as told by your health care provider. Follow your treatment plan as told by your health care provider. This may include: ?Gentle, regular exercise. ?Eating a healthy diet that includes foods such as vegetables, fruits, fish, and lean meats. ?Cognitive or behavioral therapy. ?Working with a physical therapist. ?Meditation or yoga. ?Acupuncture or massage therapy. ?Aroma, color, light, or sound therapy. ?Local electrical stimulation. ?Shots (injections) of numbing or pain-relieving medicines into the spine or the area of pain. Check your pain level as told by your health care provider. Ask your health care provider if you should use a pain scale. Learn as much as you can about how to manage your chronic pain. Ask your health care provider if an intensive pain rehabilitation program or a chronic pain specialist would be helpful. Keep all follow-up visits as told by your health care provider. This is important. Contact a health care provider if: Your pain gets worse. You have new pain. You have trouble sleeping. You have trouble doing your normal activities. Your pain is not controlled with treatment. Your have side effects from pain medicine. You feel weak. Get help right away if: You lose feeling or have numbness in your body. You lose control of bowel or bladder function. Your pain suddenly gets much worse. You develop shaking or chills. You develop confusion. You develop chest pain. You have trouble breathing or shortness of breath. You pass out. You have thoughts about hurting yourself or others. This information is not intended to replace advice given to you by your health care provider. Make sure you discuss any questions you have with your health care provider. Document Released: 04/20/2003 Document Revised: 07/11/2018 Document Reviewed: 01/15/2017 [employer] Patient Education 2020 [employer]. 12/22/2021 16:22:15 Hematuria, Adult Hematuria, Adult Hematuria is blood in the urine. Blood may be visible in the urine, or it may be identified with a test. This condition can be caused by infections of the bladder, urethra, kidney, or prostate. Other possible causes include: Kidney stones. Cancer of the urinary tract. Too much calcium in the urine. Conditions that are passed from parent to child (inherited conditions). Exercise that requires a lot of energy. Infections can usually be treated with medicine, and a kidney stone usually will pass through your urine. If neither of these is the cause of your hematuria, more tests may be needed to identify the cause of your symptoms. It is very important to tell your health care provider about any blood in your urine, even if it is painless or the blood stops without treatment. Blood in the urine, when it happens and then stops and then happens again, can be a symptom of a very serious condition, including cancer. There is no pain in the initial stages of many urinary cancers. Follow these instructions at home: Medicines Take yict-amu-mgrlout and prescription medicines only as told by your health care provider. If you were prescribed an antibiotic medicine, take it as told by your health care provider. Do not stop taking the antibiotic even if you start to feel better. Eating and drinking Drink enough fluid to keep your urine clear or pale yellow. It is recommended that you drink 3 4 quarts (2.8 3.8 L) a day. If you have been diagnosed with an infection, it is recommended that you drink cranberry juice in addition to large amounts of water. Avoid caffeine, tea, and carbonated beverages. These tend to irritate the bladder. Avoid alcohol because it may irritate the prostate (men). General instructions If you have been diagnosed with a kidney stone, follow your health care provider's instructions about straining your urine to catch the stone. Empty your bladder often. Avoid holding urine for long periods of time. If you are female: ?After a bowel movement, wipe from front to back and use each piece of toilet paper only once. ?Empty your bladder before and after sex. Pay attention to any changes in your symptoms. Tell your health care provider about any changes or any new symptoms. It is your responsibility to get your test results. Ask your health care provider, or the department performing the test, when your results will be ready. Keep all follow-up visits as told by your health care provider. This is important. Contact a health care provider if: You develop back pain. You have a fever. You have nausea or vomiting. Your symptoms do not improve after 3 days. Your symptoms get worse. Get help right away if: You develop severe vomiting and are unable take medicine without vomiting. You develop severe pain in your back or abdomen even though you are taking medicine. You pass a large amount of blood in your urine. You pass blood clots in your urine. You feel very weak or like you might faint. You faint. Summary Hematuria is blood in the urine. It has many possible causes. It is very important that you tell your health care provider about any blood in your urine, even if it is painless or the blood stops without treatment. Take otif-ifp-ffmeepv and prescription medicines only as told by your health care provider. Drink enough fluid to keep your urine clear or pale yellow. This information is not intended to replace advice given to you by your health care provider. Make sure you discuss any questions you have with your health care provider. Document Released: 07/29/2006 Document Revised: 12/23/2019 Document Reviewed: 08/31/2017 [employer] Patient Education 2020 [employer]. Follow Up Care 11/17/2021 13:37:22 With:Mike AGUILAR Address: [address] [place] [phone] (1) When:01/01/2022 10:45:00 With:HUONG ARTHUR Address: [address] [facility] [address] [place] [address] When: Unknown [facility] 12-22-2021 Evaluation + Plan note Extrac leigh ann from: Title:APSO Note Author:Silvana HUSTON ate:12/22/21 1. 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 Aguilar -PT/OT - when ok w/ urology -CBC/BMP -Pain mgt. -Education: Oral pain medication regimen, incentive spirometry 10 times while awake and bowel regimen to avoid constipation -Thank you for the opportunity to assist in the management of your patient Ordered: Sbsq Hospital Care/Day Moderate 25 Minutes [id number] 2. Hematuria (R31.9: Hematuria, unspecified) Hgb stable -CBI, mgt. per urology 3. Bronchitis (J40: Bronchitis, not specified as acute or chronic) Denies home 02 use -Pt. is heavy smoker x 20+ years, suspected COPD -CXR: No acute process -IV azithromycin -Med nebs, flutter, mucinex, supplemental 02 -Avoid steroids as patient does not exhibit wheezing & in the setting of hematuria -Sputum cx. - pending 4. Smoker (F17.200: Nicotine dependence, unspecified, uncomplicated) Counseled on the need for smoking cessation -Nicotine patch 5. Hypertensive urgency (I16.0: Hypertensive urgency) Pt. is unable to state if bp is controlled at home -Bp improved today -Lisinopril 40 mg daily -Add amlodipine 5 mg daily on 12/21 -IV hydralazine prn 6. Hyponatremia (E87.1: Hypo-osmolality and hyponatremia) Likely 2/2 nausea and poor po intake on 12/21 -Asymptomatic -Trend BMP 7. Nausea (R11.0: Nausea) Post op nausea - resolved 12/22 -IV anti-emetic -KUB: no acute process 8. Hypercholesterolemia (E78.00: Pure hypercholesterolemia, unspecified) -Atorvastatin 9. Depression (F32.A: Depression, unspecified) -Duloxetine 10. Chronic pain (G89.29: Other chronic pain) -Gabapentin, duloxetine 11. Insomnia (G47.00: Insomnia, unspecified) -Temazepam 12. DVT prophylaxis (Z29.9: Encounter for prophylactic measures, unspecified) -Avoid heparin in the setting of hematuria -LEIGH ANN Marina Orders: amlodipine, 5 mg = 1 tab(s), Tab, Oral, Daily, NOW, Start date 12/21/21 11:19:00 EDT, 12/21/21 11:19:00 EDT guaifenesin, 1,200 mg = 2 tab(s), Tab-ER, Oral, BID, NOW, Start date 12/21/21 11:30:00 EDT, 12/21/21 11:30:00 EDT nicotine, 21 mg, 1 patch(es), Patch-ER, TransDermal, Daily, NOW, Start date 12/21/21 11:28:00 EDT ondansetron, 4 mg = 2 mL, Injection, IV Push, q6hr PRN Nausea, NOW, Start date 12/21/21 11:49:00 EDT, 12/21/21 11:49:00 EDT remove patch, 1 patch(es), Patch, Topical, Daily, 12/22/21 9:00:00 EDT Basic Metabolic Panel eGFR Evaluate For Pulmonary Rehabilitation Flutter Valve Hemoglobin and Hematocrit Prealbumin PT & PTT Saline Lock Insert Smoking Cessation Instruction XR Abdomen 1 View -Plan discussed w/ patient, nursing staff and CRM. This report was transcribed using voice recognition software. Every effort was made to ensure accuracy, however, inadvertently computerized central office associate mistakes may be present. Extracted from: Title:APSO Note Author:VICENTA RIKKI-Silvana YOUNGBLOOD ate:12/21/21 1. 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 Aguilar -PT/OT - when ok w/ urology -CBC/BMP -Pain mgt. -Education: Oral pain medication regimen, incentive spirometry 10 times while awake and bowel regimen to avoid constipation -Thank you for the opportunity to assist in the management of your patient 2. Hematuria (R31.9: Hematuria, unspecified) Hgb stable -CBI, mgt. per urology 3. Bronchitis (J40: Bronchitis, not specified as acute or chronic) Denies home 02 use -Pt. is heavy smoker x 20+ years, suspected COPD -CXR: No acute process -IV azithromycin -Med nebs, flutter, mucinex, supplemental 02 -Avoid steroids as patient does not exhibit wheezing & in the setting of hematuria -Sputum cx. - pending 4. Smoker (F17.200: Nicotine dependence, unspecified, uncomplicated) Counseled on the need for smoking cessation -Nicotine patch 5. Hypertensive urgency (I16.0: Hypertensive urgency) Pt. is unable to state if bp is controlled at home -Uncontrolled at present -Lisinopril 40 mg daily -Add amlodipine 5 mg daily -IV hydralazine prn 6. Hypercholesterolemia (E78.00: Pure hypercholesterolemia, unspecified) -Atorvastatin 7. Depression (F32.A: Depression, unspecified) -Duloxetine 8. Chronic pain (G89.29: Other chronic pain) -Gabapentin, duloxetine 9. Insomnia (G47.00: Insomnia, unspecified) -Temazepam 10. DVT prophylaxis (Z29.9: Encounter for prophylactic measures, unspecified) -Avoid heparin in the setting of hematuria -SCDs, LEIGH ANN paige Orders: amlodipine, 5 mg = 1 tab(s), Tab, Oral, Daily, NOW, Start date 12/21/21 11:19:00 EDT, 12/21/21 11:19:00 EDT azithromycin + Sodium Chloride 0.9% intravenous solution 250 mL, 500 mg = 1 EA, Injection, IV Piggyback, Daily for 5 day(s), Stop date 12/26/21 8:59:00 EDT, Routine, Start date 12/21/21 9:00:00 EDT, 250 mL/hr, Infuse over 60 minute(s) guaifenesin, 1,200 mg = 2 tab(s), Tab-ER, Oral, BID, NOW, Start date 12/21/21 11:30:00 EDT, 12/21/21 11:30:00 EDT ipratropium, 2.5 mL, Soln-Inh, NEB, QID, Routine, Start date 12/21/21 12:00:00 EDT levalbuterol, 0.63 mg = 3 mL, Soln-Inh, Inhalation, QID, Routine, Start date 12/21/21 12:00:00 EDT, 12/21/21 8:27:00 EDT levalbuterol, 0.63 mg = 3 mL, Soln-Inh, Inhalation, q2hr PRN Shortness of breath or wheezing, Routine, Start date 12/21/21 8:27:00 EDT, 12/21/21 8:27:00 EDT lisinopril, 40 mg = 2 tab(s), Tab, Oral, Once, Stop date 12/21/21 7:28:00 EDT, NOW, Start date 12/21/21 7:28:00 EDT, 12/21/21 7:28:00 EDT nicotine, 21 mg, 1 patch(es), Patch-ER, TransDermal, Daily, NOW, Start date 12/21/21 11:28:00 EDT remove patch, 1 patch(es), Patch, Topical, Daily, 12/22/21 9:00:00 EDT Consult to Clinical Construction Tech Consult to Dietitian Adult Evaluate For Pulmonary Rehabilitation Flutter Valve Intake and Output Notify Provider Vital Signs Oxygen - Wean Peak Expiratory Flow Prealbumin Precautions PT & PTT Saline Lock Insert Smoking Cessation Instruction Sputum Culture -Plan discussed w/ patient, nursing staff and CRM. This report was transcribed using voice recognition software. Every effort was made to ensure accuracy, however, inadvertently computerized central office associate mistakes may be present. Extracted from: Title:KARIN SOAP Simple Author:Mike AGUILAR MD ate:12/21/21 Impression and Plan Assessment and Plan: Diagnosis: Shortness of breath ([id number] R06.02, Discharge, Medical), HTN [Hypertension] ([id number] I10, Working, Medical), BPH with obstruction/lower urinary tract symptoms ([id number] N40.1, Working, Medical). Additional Plan of Care and/or Course of Treatment: Additional Plan of Care and/or Course of Treatment: CBI to continue at this point. We may try to wean it down later today and increase his activity, perhaps with a trip to the bedside chair Regarding the tachypnea, I have ordered chest x-ray immediately as well as checking pulse oximetry readings. Dr. Leonardo at all thought to be notified of his moderate shortness of breath Patient developed some hypotension last evening and needed consultation to the hospitalist service with intravenous medication management. Further plans per hospitalist service. This am's lab data OK. . Extracted from: Title:BELKYS POSTOP NEURAXIAL NOTE Author:Kana Briggs JR, DO Date:12/20/21 Plan Transfer/ Discharge: Patient can be discharged from PACU when criteria met. Condition good. Extracted from: Title:BELKYS PREOP NEURAXIAL ADULT NOTE Author:Kana Juarez JR, DO Date:12/20/21 Plan [place] [employer] (ASA) physical status classification: Class III. Anesthetic Preoperative Plan Anesthesia: Regional Spinal. Anesthetic plan, risks, benefits, and alternatives discussed with the patient and/or family. Pt. and/or family present and agree to proceed as planned.. Discussed the importance of abstaining from tobacco products, and offered counseling if pt. desired.. Future Appointments Appointment Date:01/01/2022 10:45:00 AM Scheduled Provider:Mike AGUILAR MD Location:[facility] Appointment Type:URO Office Visit Appointment Date:01/15/2022 08:30:00 AM Scheduled Provider:Mike AGUILAR MD Location:[facility] App[facility]ments Appointment Date:12/21/2021 12:00:00 PM Scheduled Provider: Location:[facility] Appointment Type:Surgery FT Appointment Date:01/15/2022 08:30:00 AM Scheduled Provider:Mike AGUILAR MD Location:[facility] Future App[facility]ments Appointment Date:01/01/2022 10:45:00 AM Scheduled Provider:Mike AGUILAR MD Location:[facility] Appointment Type:URO Office Visit Appointment Date:01/15/2022 08:30:00 AM Scheduled Provider:Mike AGUILAR MD Location:[facility] Appointment Type:URO Office Visit [facility] Evaluation + Plan note Future Appointments Appointment Date:02/14/2022 09:30:00 AM Scheduled Provider:Mike AGUILAR MD Location:[facility] Appointment Type:URO Office Visit [facility] Evaluation + Plan note Future Appointments Appointment Date:03/26/2022 07:30:00 AM Scheduled Provider:Mike AGUILAR MD Location:[facility] Appointment Type:URO Office Visit [facility] Evaluation + Plan note Future Appointments Appointment Date:06/12/2023 10:30:00 AM Scheduled Provider:Mike AGUILAR MD Location:[facility] Appointment Type:URO Office Visit [facility] Evaluation + Plan note Future Appointments Appointment Date:07/01/2024 08:45:00 AM Scheduled Provider:Mike AGUILAR MD Location:[facility] Appointment Type:URO Office Visit [facility] Evaluation note* Diagnosis Onset Date Resolution Status History of colon polyps geetha sellers [facility] Work Phone: Hospital course Narrative No data available for this section [facility] Discharge instructions No data available for this section [facility] Discharge instructions Additional Instructions DISCHARGE INSTRUCTIONS FOR ENDOSCOPY FOR COLONOSCOPY: -Expect a gassy or full feeling after a colonoscopy. Report any NEW abdominal pain or vomiting. -Watch for rectal bleeding if you have a polyp removed. You may have oozing, but notify the doctor if you pass clots. -Avoid aspirin for 2 days IF a polyp is removed. -It is important to keep your appointments for follow up examinations because polyps can grow back. FOR SEDATION FOR 24 HOURS: -NO driving -Do NOT operate machinery such as power tools, lawn mowers, snow blowers, sewing machines, etc. -Avoid alcoholic beverages and drugs for allergies, nerves, or sleep. -Do NOT stay alone. Do NOT leave your child unattended. -Do NOT make important personal or business decisions or sign any legal documents. -Eat solid foods and drink liquids in smaller amounts than usual until normal appetite returns. If you should experience an upset stomach, liquids high in sugar content (soda, Andi-aid, non-acid juices) are recommended. -You can resume normal activities tomorrow. FOLLOW UP Please call the office and make a follow up appointment to see me in6-8 weeks. Repeat colonoscopy in 3 years Mesalamine 2 p.o. every morning -Notify the doctor if you have any problems. -[phone] Phone: Progress note No data available for this section [facility] Advance Directives No Advanced Directives Records Found Advance Directive Response Recorded Date/ Time Advance Directives No January 08 6:50am Advance Directive Response Recorded Date/ Time Advance Directives No January 08 5:50am Chief Complaint and Reason for Visit Chief Complaint m43.16 m54.16 m54.9 hx of smoking Chief Complaint Hx of Colon Polyps Reason for Visit History of colon valerie yps Chief Complaint Hx of Colon Polyps f17.210 Reason for Visit History of colon valerie yps Assessments No Assessments Information Available Summary Purpose Family History No Family History Records Found Additional Source Comments Care Team (unrecognized sect ion and content) Team Status: Inactive Member Role Status Dates Huong Arthur , Primary Care Provider Active Jourdan Hammer MD Attending Provider Active Team Status: Active Member Role Status Dates Huong Arthur DO Primary Care Provider Active Team Status: Inactive Member Role Status Dates Huong Arthur DO Primary Care Provider Active Vilal Singleton , TIMI MSN ANP-C Attending Provider Act yong (unrecognized sect ion and content) No Status Records FoundNo Status Records FoundNo Status Records FoundNo Status Records FoundNo Status Records Found INFORMATION SOURCE (unrecogn ized section and content) DATE CREATED AUTHOR 12/21/2022 [facility] DATE CREATED AUTHOR AUTHOR'S ORGANIZ ATION 06/25/2023 [facility] DATE CREATED AUTHOR AUTHOR'S ORGANIZ ATION 07/02/2023 [facility] DATE CREATED AUTHOR AUTHOR'S ORGANIZ ATION 07/21/2023 [facility] DATE CREATED AUTHOR AUTHOR'S ORGANIZ ATION 07/26/2023 [facility] FOR RECORDS PERTAINING TO PATIENTS WHO ARE OR HAVE BEEN ENROLLED IN A CHEMICAL DEPENDENCY/SUBSTANCEABUSE PROGRAM, SOME INFORMATION MAY BE OMITTED. This clinical summary was aggregated from multiple sources. Caution should be exercised in using it in the provision of clinical care. This summary normalizes information from multiple sources, and as a consequence, information in this document may materially change the coding, format and clinical context of patient data. In addition, data may be omitted in some cases. CLINICAL DECISIONS SHOULD BE BASED ON THE PRIMARY CLINICAL RECORDS. [facility] [facility]. provides no warranty or guarantee of the accuracy or completeness of information in this document.
[2023-08-19 06:56] VITALS: BP 166/103; PULSE 78; RESP 16; TEMP 36.6; O2SAT 96
[2023-08-19] MEDS: BUPIVACAINE HCL 0.25% PF 25 MG/10 ML VIAL INJ (07:45)
[2023-08-19] MEDS: TRIAMCINOLONE ACETONIDE 40 MG/ML VIAL INJ (07:47)
[2023-08-19] MEDS: LIDOCAINE HCL 2% PF 100 MG/5 ML VIAL INJ (07:47)
[2023-08-19] MEDS: IOHEXOL 240 MG/ML - 10 ML VIAL INJ (07:47)
--- NOTE | 2023-08-19 07:47 | W.PM.PROCNOT ---
Date of procedure: 08/19/23 Pre-op diagnosis: Left sacroiliitis Post-op diagnosis: same as pre-op Procedure: Procedure: Block of the nerve innervating the left sacroiliac joint Medications: Bupivacaine 0.25% 3cc, kenalog 40mg After informed consent was obtained, the patient was brought to the medical procedure unit and placed in the prone position, when a timeout was completed verifying correct patient, procedure, site, positioning, implant, and/or special equipment.? The skin overlying the area was prepped and draped in standard sterile fashion using alcohol.? A 25-gauge needle was inserted towards the left nerve innervating the sacroiliac joint under direct fluoroscopic imaging.? Needle tip was advanced until the nerve was encountered.? We instilled a total of 3 mL of solution.? Postoperatively needles were removed.? The patient tolerated the procedure well without complication.? The patient reported reduction in pain symptoms postoperatively. Anesthesia: Local Surgeon: Elena Hightower Pathology: none sent Condition: stable Disposition: no change
[2023-08-19 07:58] VITALS: BP 208/90; BP 210/94; PULSE 70; PULSE 74; RESP 16; O2SAT 94
--- NOTE | 2023-08-19 08:08 | PC.NURSE ---
Dr. Hightower made aware of increased BP in preop. Pt was reminded in preop and in postop to take his normal BP meds when he returns home and double check that it's coming down with his home BP cuff. Pt voiced understanding.
== END 2023-08-19 07:51 | disposition home or self-care (01) ==
PROVIDERS: PCP Internal Medicine; Visit Provider Anesthesiology
DX: M46.1 Sacroiliitis, not elsewhere classified (principal)
CPT/HCPCS: 64451; J0665; J3301; Q9966